=== PATIENT | female | born 1935 | race Caucasian/White ===

== ENCOUNTER 2016-09-09 22:02 | Inpatient (IN) | payer MEDICARE, OTHER ==
[~2016-09-09] VITALS: Ht 149.9 cm; Wt 54.3 kg
[~2016-09-09 22:02] MED LIST: AMAR4TAB PO; BACT800T5 PO; ENAL10TA PO; LEVO50TA53 PO; METF1000 PO; PRAV10TA PO
[2016-09-09 22:19] VITALS: BP 102/52; PULSE 108; RESP 20; TEMP 98.8; O2SAT 100
[2016-09-09 23:08] LABS: BLOOD, URINE LARGE (NEG); GLUCOSE,URINE NEG (NEG); KETONE, URINE NEG (NEG); NITRITE,URINE NEG (NEG)
[2016-09-09 23:30] LABS: METHOD OF COLLECTION CLEAN CATCH; URINE COLOR STRAW (YELLW/STRAW)
[2016-09-09 23:31] LABS: BACTERIA, URINE FEW /hpf; SQUAMOUS EPITHELIAL CELL URINE 0-5 /hpf (0-5); TRANSITIONAL EPI CELLS, URINE 0-5 /hpf; WBC, URINE INNUM /hpf (0-5)
[2016-09-09 23:32] LABS: COMMENT (UR) CULTURE INDICATED; CULTURE IF INDICATED CULTURE INDICATED
[2016-09-09 23:35] VITALS: BP_SYST 102; BP_SYST 142; BP_DIAS 54; BP_DIAS 60; PULSE 104; RESP 18; O2SAT 97
[2016-09-09] MEDS ORDERED: SODIUM CHLORIDE 0.9% FLUSH 5 ML FLUSH IVF PRN (23:45)
[2016-09-09] MEDS ORDERED: SODIUM CHLORID 0.9% 500 ML INJ 500 ML IV ONE (23:45)
[2016-09-09] MEDS ORDERED: SODIUM CHLOR 0.9% 1000 ML INJ 1,000 ML IV SCH (23:45)
[2016-09-09] MEDS ORDERED: LEVOFLOXACIN 500 MG PREMIX INJ 100 ML IV ONE (23:45)
--- NOTE | 2016-09-09 23:57 | PD ---
HPI Chief Complaint: Flank/Kidney Pain Time Seen by Provider: 23:43 Travel History International Travel<30 days: No Contact w/Intl Traveler<30days: No Traveled to known affect area: No History of Present Illness HPI 80-year-old female presents to the emergency department for possible recurrent urinary tract infection or pyelonephritis. Patient is Marshallese-speaking and prefers that her daughter Bharti translate for her and does not want to use our A /V resource to translate for her. According to the daughter who provides most of the patient's history patient felt well yesterday this morning appeared to be fine by phone conversation around 3 PM the patient's daughter was called by her brother stating that the patient was having right-sided flank pain and did not appear well. Patient had one episode of vomiting without reported hematemesis coffee-ground emesis melena or hematochezia. No reported diarrhea. Symptoms are typical of how she presents when she has a urinary tract infection. Patient is also noted at home to have temperature elevation of 100.4 F and was administered acetaminophen. Daughter states since patient not improving after 5 PM decided to bring her to the emergency room for evaluation. Patient has had multiple admissions for UTI pyelonephritis kidney stone and urosepsis related issues. Patient was last hospitalized the beginning of June was treated with Levaquin during her hospitalization and was discharged with a 10 day course of antibiotic. Patient has not been on any antibiotic in August or since the beginning of July. Patient denies any cough congestion sore throat shortness of breath upper back pain generalized abdominal pain joint pain joint swelling or skin rash. Patient's had no chest pain. Patient states flank pain does not remind her of her kidney stone pain. Current pain is 0/10 intensity. Patient has history of diabetes hypertension dyslipidemia myocardial infarction hypothyroidism kidney stones previous bladder prolapse with fistula and status post cystocele repair and fistula repair May 2016. Also status post cholecystectomy eyes surgery and lithotripsy. [facility] Past Medical History Narrative Medical diabetes hypertension dyslipidemia myocardial infarction hypothyroidism kidney stones previous bladder prolapse with fistula and status post cystocele repair and fistula repair May 2016 cholecystectomy eyes surgery and lithotripsy. No tobacco use. Nursing notes reviewed. Arthritis: No Anxiety: No Depression: No Cancer: No Cardiovascular Problems: No High Cholesterol: Yes Chemotherapy: No Congestive Heart Failure: No Diabetes: Yes (TYPE II) Diminished Hearing: No Endocrine: Yes Genitourinary: Yes Hepatitis: No Hiatal Hernia: No Hypertension: Yes Immune Disorder: No Implanted Vascular Access Dvce: Yes Kidney Stones: Yes Musculoskeletal: Yes Neurologic: No Psychiatric: No Reproductive: Yes (UTERINE PROLAPSE) Respiratory: No Immunizations Current: No Myocardial Infarction: Yes (1993) Radiation Therapy: No Thyroid Disease: Yes (HYPOTHYROIDISM) Triglycerides - High: Yes (HYPOTHYROID) PNEUMOCCOCAL Vaccine (Year): 2010 Menopausal: Yes Past Surgical History Abdominal Surgery: Yes (LAP ANGELIQUE 1994) AICD: No Body Medical Devices: R EYE Cholecystectomy: Yes Ear Surgery: No Eye Surgery: Yes (RT. EYE PROSTHESIS PLACEMENT) Genitourinary Surgery: Yes (LITHOTRIPSY 09/2010, BLADDER SLING) Gynecologic Surgery: Yes (FISTULA REPAIR 2015) Joint Replacement: No Oral Surgery: Yes (DENTURES) Pacemaker: No Other Surgery: Yes (LAPRASCOPY,) Social History Alcohol Use: No Tobacco Use: No Substance Use: No Allergies-Medications (Allergen,Severity, Reaction): Coded Allergies: Contrast Media (Verified Allergy, Intermediate, Rash, 07/25/16) Rocephin (Verified Adverse Reaction, Severe, Diarrhea, 07/25/16) Reported Meds & Prescriptions Reported Meds & Active Scripts Active Reported Amaryl (Glimepiride) 4 Mg Tab 4 Mg PO DAILY Take with breakfast or first main meal Levoxyl (Levothyroxine Sodium) 50 Mcg Tab 50 Mcg PO DAILY Enalapril (Enalapril Maleate) 10 Mg Tab 10 Mg PO DAILY Pravastatin 10 Mg Tab 10 Mg PO HS Metformin (Metformin HCl) 1,000 Mg Tab 1,000 Mg PO BIDPC With meals Review of Systems Except as stated in HPI: all other systems reviewed are Neg General / Constitutional: Positive: Fever, Chills HENT: No: Congestion Cardiovascular: No: Chest Pain or Discomfort Respiratory: No: Cough, Shortness of Breath Gastrointestinal: Positive: Nausea, Vomiting (x1), Loss of Appetite, No: Diarrhea, Abdominal Pain, Hematemesis, Hematochezia Genitourinary: Positive: Dysuria, Flank Pain, No: Urgency, Frequency Musculoskeletal: No: Myalgias, Arthralgias Skin: No Rash Neurologic: Positive: Weakness Psychiatric: No: Anxiety Hematologic/Lymphatic: No: Lymph Node Enlargement Physical Exam Narrative GENERAL: Well-developed frail-appearing female in no acute distress no respiratory distress; room air O2 saturation 96-100% heart rate 108 blood pressure 102/52 respiratory rate 20 temperature 98.8F SKIN: Warm and dry. HEAD: Normocephalic. EYES: No scleral icterus. No injection or drainage. NECK: Supple, trachea midline. No JVD or lymphadenopathy. CARDIOVASCULAR: Regular rate and rhythm without murmurs, gallops, or rubs. RESPIRATORY: Breath sounds equal bilaterally. No accessory muscle use. GASTROINTESTINAL: Abdomen soft, non-tender, nondistended. MUSCULOSKELETAL: No cyanosis, or edema. BACK: Nontender without obvious deformity. No CVA tenderness. Data Data Last Documented VS Vital Signs Date Time Temp Pulse Resp B/P Pulse Ox O2 Delivery O2 Flow Rate FiO2 09/10/16 02:46 98.1 100 18 105/68 98 Room Air Orders Urinalysis - C+S If Indicated (09/09/16 22:47) Urine Culture (09/09/16 22:39) Complete Blood Count With Diff (09/09/16 23:43) Comprehensive Metabolic Panel (09/09/16 23:43) Ecg Monitoring (09/09/16 23:43) Iv Access Insert/Monitor (09/09/16 23:43) Sodium Chloride 0.9% Flush (Ns Flush) (09/09/16 23:45) Chest, Single Ap (09/09/16 ) Blood Culture (09/09/16 23:43) Lactic Acid Sepsis Protocol (09/09/16 23:43) Sodium Chlorid 0.9% 500 Ml Inj (Ns 500 M (09/09/16 23:45) Sodium Chlor 0.9% 1000 Ml Inj (Ns 1000 M (09/09/16 23:45) Levofloxacin 500 Mg Premix Inj (Levaquin (09/09/16 23:45) Sodium Chlorid 0.9% 500 Ml Inj (Ns 500 M (09/10/16 02:15) Sodium Chlor 0.9% 1000 Ml Inj (Ns 1000 M (09/10/16 02:15) Ct Abd/Pel W/O Iv Contrast (09/10/16 ) Aztreonam Inj (Azactam Inj) (09/10/16 02:30) Admit Order (Ed Use Only) (09/10/16 ) ^ Saline Lock (09/10/16 03:27) Resp Oxygen Jose Miguel C Titrat 1-4 L (09/10/16 ) ^ Notify Dr: Other (09/10/16 03:27) Sodium Chloride 0.9% Flush (Ns Flush) (09/10/16 09:00) Labs Laboratory Tests Test 09/09/16 09/10/16 22:39 00:15 Urine Collection Type CLEAN CATCH Urine Color STRAW Urine Turbidity CLOUDY Urine pH 6.0 Urine Specific [place] 1.014 Urine Protein 100 mg/dL Urine Glucose (UA) NEG mg/dL Urine Ketones NEG mg/dL Urine Occult Blood LARGE Urine Nitrite NEG Urine Bilirubin NEG Urine Leukocyte Esterase LARGE Urine WBC INNUM /hpf Urine WBC Clumps FEW Urine Squamous Epithelial 0-5 /hpf Cells Urine Transitional Epithelial 0-5 /hpf Cells Urine Bacteria FEW /hpf Microscopic Urinalysis Comment CULTURE INDICATED White Blood Count 12.4 TH/MM3 Red Blood Count 3.83 MIL/MM3 Hemoglobin 9.1 GM/DL Hematocrit 28.3 % Mean Corpuscular Volume 73.8 FL Mean Corpuscular Hemoglobin 23.8 PG Mean Corpuscular Hemoglobin 32.3 % Concent Red Cell Distribution Width 16.7 % Platelet Count 165 TH/MM3 Mean Platelet Volume 9.6 FL Neutrophils (%) (Auto) 87.6 % Lymphocytes (%) (Auto) 4.7 % Monocytes (%) (Auto) 6.5 % Eosinophils (%) (Auto) 0.1 % Basophils (%) (Auto) 1.1 % Neutrophils # (Auto) 10.9 TH/MM3 Lymphocytes # (Auto) 0.6 TH/MM3 Monocytes # (Auto) 0.8 TH/MM3 Eosinophils # (Auto) 0.0 TH/MM3 Basophils # (Auto) 0.1 TH/MM3 CBC Comment AUTO DIFF Differential Total Cells 100 Counted Neutrophils % (Manual) 72 % Band Neutrophils % 21 % Lymphocytes % 4 % Monocytes % 3 % Neutrophils # (Manual) 11.5 TH/MM3 Differential Comment FINAL DIFF MANUAL Dohle Bodies PRESENT Platelet Estimate NORMAL Platelet Morphology Comment NORMAL Sodium Level 134 MEQ/L Potassium Level 4.8 MEQ/L Chloride Level 102 MEQ/L Carbon Dioxide Level 18.3 MEQ/L Anion Gap 14 MEQ/L Blood Urea Nitrogen 51 MG/DL Creatinine 2.70 MG/DL Estimat Glomerular Filtration 17 ML/MIN Rate Random Glucose 171 MG/DL Lactic Acid Level 1.7 mmol/L Calcium Level 9.1 MG/DL Total Bilirubin 0.5 MG/DL Aspartate Amino Transf 13 U/L (AST/SGOT) Alanine Aminotransferase 14 U/L (ALT/SGPT) Alkaline Phosphatase 49 U/L Total Protein 7.2 GM/DL Albumin 3.0 GM/DL MDM Medical Decision Making Medical Screen Exam Complete: Yes Emergency Medical Condition: Yes Medical Record Reviewed: Yes Interpretation(s) ua: Leukocyte Estrace positive, WBCs and clumped wbc's, rare bacteria; culture indicated Laboratory Tests Test 09/09/16 09/10/16 22:39 00:15 Urine Collection Type CLEAN CATCH Urine Color STRAW Urine Turbidity CLOUDY Urine pH 6.0 Urine Specific [place] 1.014 Urine Protein 100 mg/dL Urine Glucose (UA) NEG mg/dL Urine Ketones NEG mg/dL Urine Occult Blood LARGE Urine Nitrite NEG Urine Bilirubin NEG Urine Leukocyte Esterase LARGE Urine WBC INNUM /hpf Urine WBC Clumps FEW Urine Squamous Epithelial 0-5 /hpf Cells Urine Transitional Epithelial 0-5 /hpf Cells Urine Bacteria FEW /hpf Microscopic Urinalysis Comment CULTURE INDICATED White Blood Count 12.4 TH/MM3 Red Blood Count 3.83 MIL/MM3 Hemoglobin 9.1 GM/DL Hematocrit 28.3 % Mean Corpuscular Volume 73.8 FL Mean Corpuscular Hemoglobin 23.8 PG Mean Corpuscular Hemoglobin 32.3 % Concent Red Cell Distribution Width 16.7 % Platelet Count 165 TH/MM3 Mean Platelet Volume 9.6 FL Neutrophils (%) (Auto) 87.6 % Lymphocytes (%) (Auto) 4.7 % Monocytes (%) (Auto) 6.5 % Eosinophils (%) (Auto) 0.1 % Basophils (%) (Auto) 1.1 % Neutrophils # (Auto) 10.9 TH/MM3 Lymphocytes # (Auto) 0.6 TH/MM3 Monocytes # (Auto) 0.8 TH/MM3 Eosinophils # (Auto) 0.0 TH/MM3 Basophils # (Auto) 0.1 TH/MM3 CBC Comment AUTO DIFF Differential Total Cells 100 Counted Neutrophils % (Manual) 72 % Band Neutrophils % 21 % Lymphocytes % 4 % Monocytes % 3 % Neutrophils # (Manual) 11.5 TH/MM3 Differential Comment FINAL DIFF MANUAL Dohle Bodies PRESENT Platelet Estimate NORMAL Platelet Morphology Comment NORMAL Sodium Level 134 MEQ/L Potassium Level 4.8 MEQ/L Chloride Level 102 MEQ/L Carbon Dioxide Level 18.3 MEQ/L Anion Gap 14 MEQ/L Blood Urea Nitrogen 51 MG/DL Creatinine 2.70 MG/DL Estimat Glomerular Filtration 17 ML/MIN Rate Random Glucose 171 MG/DL Lactic Acid Level 1.7 mmol/L Calcium Level 9.1 MG/DL Total Bilirubin 0.5 MG/DL Aspartate Amino Transf 13 U/L (AST/SGOT) Alanine Aminotransferase 14 U/L (ALT/SGPT) Alkaline Phosphatase 49 U/L Total Protein 7.2 GM/DL Albumin 3.0 GM/DL CT abd/pel renal stone protocol: CONCLUSION: 1. No evidence of acute abdominal or pelvic process. No masses are identified. 2. Decreasing bilateral hydronephrosis and hydroureter. 3. Diverticulosis without evidence of diverticulitis. Toney Bird MD on September 10, 2016 at 2:59 Board Certified Radiologist. This report was verified electronically. Differential Diagnosis UTI, pyelonephritis, renal colic, choledocholithiasis, pneumonia, sepsis Narrative Course Patient placed on monitor technician IV access obtained patient administered bolus of normal saline 500 cc 10 cc per KG due to low normal range blood pressure and maintenance fluid at 1 25 cc per hour also administered presumptive Levaquin based on review of medical records and previous culture sensitive to quinolones. Sepsis Criteria SIRS Criteria (2 or more): Heart rate over 90, WBC > 10359, < 4000 or > 10% bands Sepsis Criteria (SIRS+source): Infect source susp/known (urine) Physician Communication Physician Communication discussed with and accepted by Dr Rinaldi -- [facility] ICU Diagnosis Primary Impression: Sepsis Qualified Code: A41.9 - Sepsis, due to unspecified organism Additional Impressions: UTI (urinary tract infection) Qualified Code: N30.00 - Acute cystitis without hematuria Renal insufficiency Serena Hui MD Sep 09, 2016 23:57
[2016-09-10] VITALS (75 sets, daily range): BP systolic 59–155; BP diastolic 36–83; PULSE 84–118; RESP 17–44; TEMP 98.1–101.7; O2SAT 72–100
--- NOTE | 2016-09-10 00:18 | RADHPO ---
EXAM DATE/TIME: 09/10/2016 00:05 [facility] COMPARISON: CHEST SINGLE AP, July 01, 2016, 12:58. INDICATIONS : Fever. MEDICAL HISTORY : Hypertension. Hypercholesterolemia. Myocardial infarction. Hypothyroid, Kidnet stones, Renal fail ure, Osteoporsis, Diabetes SURGICAL HISTORY : Cholecystectomy. Carpal tunnel syndrome. Right eye prosthesis, Fistula repair ENCOUNTER: Initial ACUITY: 1 day PAIN SCORE: 3/10 LOCATION: Bilateral chest FINDINGS: The cardiac silhouette is enlarged in transverse diameter. The lungs are free of acute parenchymal op acity. No effusions are identified. Osseous structures are intact. CONCLUSION: Cardiomegaly. No acute cardiopulmonary disease. Toney Bird MD on September 10, 2016 at 0:16 Board Certified Radiologist. This report was verified electronically.
[2016-09-10 00:41] LABS: AUTOMATED NEUTROPHIL # 10.9 TH/MM3 (1.8-7.7); BASOPHIL # 0.1 TH/MM3 (0-0.2); BASOPHIL % 1.1 % (0.0-2.0); EOSINOPHIL % 0.1 % (0.0-4.0); HEMATOCRIT 28.3 % (35.0-46.0); LYMPH % 4.7 % (9.0-44.0); LYMPHOCYTE # 0.6 TH/MM3 (1.0-4.8); MEAN CELL VOLUME 73.8 FL (80.0-100.0); MEAN CORPUSCULAR HEMOGLOBIN 23.8 PG (27.0-34.0); MEAN CORPUSCULAR HGB CONC 32.3 % (32.0-36.0); MONO % 6.5 % (0.0-8.0); NEUT % 87.6 % (16.0-70.0); PLATELET COUNT 165 TH/MM3 (150-450); RED BLOOD COUNT 3.83 MIL/MM3 (4.00-5.30); RED CELL DISTRIBUTION WIDTH 16.7 % (11.6-17.2); WHITE BLOOD COUNT 12.4 TH/MM3 (4.0-11.0)
[2016-09-10 00:54] LABS: HEMO FLAGS AUTO DIFF
[2016-09-10 00:57] LABS: CHLORIDE 102 MEQ/L (98-107); POTASSIUM 4.8 MEQ/L (3.5-5.1); SODIUM (NA) 134 MEQ/L (136-145)
[2016-09-10 01:01] LABS: ANION GAP 14 MEQ/L (5-15); BICARBONATE 18.3 MEQ/L (21.0-32.0); BLOOD UREA NITROGEN 51 MG/DL (7-18)
[2016-09-10 01:04] LABS: ALT (GPT) 14 U/L (10-53); AST (GOT) 13 U/L (15-37); GLOMERULAR FILTRATION RATE 17 ML/MIN (>89)
[2016-09-10 01:06] LABS: TOTAL BILIRUBIN ADULT 0.5 MG/DL (0.2-1.0)
[2016-09-10 01:07] LABS: ALKALINE PHOSPHATASE 49 U/L (45-117)
[2016-09-10 02:11] LABS: BANDS 21 % (0-6); NEUTROPHIL # MANUAL DIFF 11.5 TH/MM3 (1.8-7.7); POLYS (SEG NEUTROPHILS) 72 % (16-70); WBC DIFF SAMPLE 100
[2016-09-10 02:13] LABS: DOHLE BODIES PRESENT (NONE SEEN); PLATELET ESTIMATE SMEAR NORMAL (NORMAL); PLATELET MORPHOLOGY NORMAL (NORMAL); SCAN/DIFF FINAL DIFF MANUAL
[2016-09-10] MEDS ORDERED: SODIUM CHLORID 0.9% 500 ML INJ 500 ML IV ONE (02:15)
[2016-09-10] MEDS ORDERED: SODIUM CHLOR 0.9% 1000 ML INJ 1,000 ML IV ONE ×2 (02:15→12:15)
[2016-09-10] MEDS ORDERED: AZTREONAM INJ 1,000 MG in SODIUM CHLORIDE 0.9% INJ 100 ML IV ONE (02:30)
--- NOTE | 2016-09-10 03:05 | RADHPO ---
EXAM DATE/TIME: 09/10/2016 02:28 [facility] COMPARISON: CT ABDOMEN & PELVIS W/O CONTRAST, July 02, 2016, 22:20. INDICATIONS : Right flank pain with fever. ORAL CONTRAST: No oral contrast ingested. RADIATION DOSE: 7.46 CTDIvol (mGy) MEDICAL HISTORY : Hypertension. Myocardial infarction. Diabetes mellitus type 2.Renal stones. Renal failure. SURGICAL HISTORY : Cholecystectomy. ENCOUNTER: Initial ACUITY: 1 day PAIN SCALE: 4/10 LOCATION: Right flank TECHNIQUE: Volumetric scanning of the abdomen and pelvis was performed. Using automated exposure control and ad justment of the mA and/or kV according to patient size, radiation dose was kept as low as reasonably achievable to obtain optimal diagnostic quality images. FINDINGS: Examination of the lung bases demonstrates no abnormality. No pleural fluid is identified. No pulmona ry nodules are present. The liver and spleen are normal in size and no focal defects are identified. The gallbladder is absent. The pancreas demonstrates normal contour without evidence of mass or ducta l dilatation. The adrenal glands are unremarkable. There is decreasing hydronephrosis bilaterally. No abnormally enlarged lymph nodes are identified. A 9 cm fat-containing umbilical hernia is present un changed from the prior study. Examination of the pelvis demonstrates no evidence of free fluid or pelvic mass. No abnormally enlarg ed inguinal or retroperitoneal lymph nodes are present. The bladder is unremarkable. There is diverti culosis without evidence of diverticulitis. The uterus is enlarged characteristic of fibroids. CONCLUSION: 1. No evidence of acute abdominal or pelvic process. No masses are identified. 2. Decreasing bilateral hydronephrosis and hydroureter. 3. Diverticulosis without evidence of diverticulitis. Toney Bird MD on September 10, 2016 at 2:59 Board Certified Radiologist. This report was verified electronically.
[2016-09-10] MEDS ORDERED: SODIUM CHLORIDE 0.9% FLUSH 5 ML FLUSH IVF PRN (03:30)
[2016-09-10] MEDS ORDERED: ACETAMINOPHEN 325 MG TAB PO PRN (04:00)
[2016-09-10] MEDS ORDERED: SODIUM CHLORIDE 0.9% FLUSH 5 ML FLUSH IV FLUSH PRN (04:00)
[2016-09-10] MEDS ORDERED: MISCELLANEOUS NURSING INFORMATION XX SCH (04:00)
[2016-09-10] MEDS ORDERED: LEVOFLOXACIN 500 MG PREMIX INJ 100 ML IV SCH (04:00)
[2016-09-10] MEDS ORDERED: CHLORHEXIDINE GLUCONATE 2 % 1 PACK (2 CLOTHS) TOP PRN (04:00)
[2016-09-10] MEDS ORDERED: ACETAMINOPHEN 325 MG TAB PO ONE (04:00)
[2016-09-10] MEDS ORDERED: ONDANSETRON HCL 4 MG/2 ML VIAL IV PRN (04:00)
[2016-09-10] MEDS ORDERED: ACETAMINOPHEN 650 MG SUPP RECTAL ONE (04:15)
[2016-09-10] MEDS: SODIUM CHLOR 0.9% 1000 ML INJ 1,000 ML IV SCH ×3 (05:17→17:20)
[2016-09-10] MEDS: CHLORHEXIDINE GLUCONATE 2 % 1 PACK (2 CLOTHS) TOP SCH (05:19)
[2016-09-10] MEDS ORDERED: MIDAZOLAM HCL 5 MG/ML VIAL (1 ML) ONE (07:00)
[2016-09-10] MEDS ORDERED: NOREPINEPHRINE-DEXTROSE DRIP 250 ML IV ONE (07:21)
[2016-09-10] MEDS ORDERED: DEXTROSE 50% IN WATER 50 ML VIAL(D50) IV PUSH PRN (07:30)
[2016-09-10] MEDS ORDERED: GLUCAGON 1 MG/ML VIAL OTHER PRN (07:30)
[2016-09-10] MEDS ORDERED: TERBUTALINE INJ 1 MG/ML AMP SQ PRN (07:30)
[2016-09-10] MEDS ORDERED: MORPHINE SULFATE 4 MG/ML INJ IV PUSH PRN (07:30)
--- NOTE | 2016-09-10 07:36 | PD.PROCEDR ---
Procedure Note Procedure DX: Severe Sepsis (A41.9), NEERAJ (N17.9) OP: Insertion Right Subclavian Central Venous Line ([id number]) Procedure: Right chest prepped and draped. Right subclavian vein cannulated with thin walled needle and wire easily advanced. Catheter passed over wire to 16 cm. Lumnes aspirated and flushed. Dressing applied. CXR with line in good position, suitable for use. Manoj Rinaldi MD Sep 10, 2016 07:36
--- NOTE | 2016-09-10 07:39 | HHI.HP ---
HPI Service Critical Care Medicine Primary Care Physician Gurdeep Mims, DO Admission Diagnosis sepsis; uti; NEERAJ; DM Diagnosis: Chief Complaint: AMS, fever Travel History International Travel<30 Days: No Contact w/Intl Traveler <30 Da: No Traveled to Known Affected Are: No History of Present Illness 80 y/o woman presents to ED with severe dehydration and florid sepsis from cystitis. Review of Systems Genitourinary: COMPLAINS OF: Urinary frequency, Dysuria Past Family Social History Allergies: Coded Allergies: Contrast Media (Verified Allergy, Intermediate, Rash, 07/25/16) Rocephin (Verified Adverse Reaction, Severe, Diarrhea, 07/25/16) Past Medical History Past Medical History Narrative Medical diabetes hypertension dyslipidemia myocardial infarction hypothyroidism kidney stones previous bladder prolapse with fistula and status post cystocele repair and fistula repair May 2016 cholecystectomy eyes surgery and lithotripsy. No tobacco use. Nursing notes reviewed. Arthritis: No Anxiety: No Depression: No Cancer: No Cardiovascular Problems: No High Cholesterol: Yes Chemotherapy: No Congestive Heart Failure: No Diabetes: Yes (TYPE II) Diminished Hearing: No Endocrine: Yes Genitourinary: Yes Hepatitis: No Hiatal Hernia: No Hypertension: Yes Immune Disorder: No Implanted Vascular Access Dvce: Yes Kidney Stones: Yes Musculoskeletal: Yes Neurologic: No Psychiatric: No Reproductive: Yes (UTERINE PROLAPSE) Respiratory: No Immunizations Current: No Myocardial Infarction: Yes (1993) Radiation Therapy: No Thyroid Disease: Yes (HYPOTHYROIDISM) Triglycerides - High: Yes (HYPOTHYROID) PNEUMOCCOCAL Vaccine (Year): 2010 Menopausal: Yes Past Surgical History Abdominal Surgery: Yes (ASHLEY ANGELIQUE 1994) AICD: No Body Medical Devices: R EYE Cholecystectomy: Yes Ear Surgery: No Eye Surgery: Yes (RT. EYE PROSTHESIS PLACEMENT) Genitourinary Surgery: Yes (LITHOTRIPSY 09/2010, BLADDER SLING) Gynecologic Surgery: Yes (FISTULA REPAIR 2015) Joint Replacement: No Oral Surgery: Yes (DENTURES) Pacemaker: No Other Surgery: Yes (LAPRASCOPY,) Social History Alcohol Use: No Tobacco Use: No Substance Use: No Allergies-Medications Allergies-Medications (Allergen,Severity, Reaction): Coded Allergies: Contrast Media (Verified Allergy, Intermediate, Rash, 07/25/16) Rocephin (Verified Adverse Reaction, Severe, Diarrhea, 07/25/16) Reported Meds & Prescriptions Reported Meds & Active Scripts Active Reported Amaryl (Glimepiride) 4 Mg Tab 4 Mg PO DAILY Take with breakfast or first main meal Levoxyl (Levothyroxine Sodium) 50 Mcg Tab 50 Mcg PO DAILY Enalapril (Enalapril Maleate) 10 Mg Tab 10 Mg PO DAILY Pravastatin 10 Mg Tab 10 Mg PO HS Metformin (Metformin HCl) 1,000 Mg Tab 1,000 Mg PO BIDPC With meals Physical Exam Vital Signs Vital Signs Date Time Temp Pulse Resp B/P Pulse Ox O2 Delivery O2 Flow Rate FiO2 09/10/16 06:00 110 09/10/16 05:16 99 Nasal Cannula 2.00 09/10/16 04:27 118 24 155/65 95 Nasal Cannula 2 09/10/16 04:25 Nasal Cannula 2 09/10/16 03:45 101.7 09/10/16 02:46 98.1 100 18 105/68 98 Room Air 09/10/16 02:13 96 86/51 96 09/10/16 01:37 100 94/58 97 09/10/16 00:56 100 16 09/09/16 23:35 104 18 102/54 97 Room Air 09/09/16 22:19 98.8 108 20 102/52 100 Physical Exam P 82, SBP 72, R 18, Sats 95% Head: Normal. Neck: Supple, airway widely patent. No obstruction. Lungs: Clear, comfortable pattern, no wheezes or crackles. Heart: NL S1S2, neck veins flat. Abdomen: Soft, mild tenderness lower abdomen. No peritoneal irritation. BS few. No guarding. Extremities: Tepid but well perfused. Neuro: Does not speak [place]. Speech clear. Moves 4 limbs spontaneously. Skin: Poor turgor. Laboratory Laboratory Tests Test 09/09/16 09/10/16 09/10/16 22:39 00:15 04:00 Urine Collection Type CLEAN CATCH Urine Color STRAW Urine Turbidity CLOUDY Urine pH 6.0 Urine Specific [place] 1.014 Urine Protein 100 Urine Glucose (UA) NEG Urine Ketones NEG Urine Occult Blood LARGE Urine Nitrite NEG Urine Bilirubin NEG Urine Leukocyte Esterase LARGE Urine WBC INNUM Urine WBC Clumps FEW Urine Squamous Epithelial 0-5 Cells Urine Transitional Epithelial 0-5 Cells Urine Bacteria FEW Microscopic Urinalysis Comment CULTURE INDICATED White Blood Count 12.4 Red Blood Count 3.83 Hemoglobin 9.1 Hematocrit 28.3 Mean Corpuscular Volume 73.8 Mean Corpuscular Hemoglobin 23.8 Mean Corpuscular Hemoglobin 32.3 Concent Red Cell Distribution Width 16.7 Platelet Count 165 Mean Platelet Volume 9.6 Neutrophils (%) (Auto) 87.6 Lymphocytes (%) (Auto) 4.7 Monocytes (%) (Auto) 6.5 Eosinophils (%) (Auto) 0.1 Basophils (%) (Auto) 1.1 Neutrophils # (Auto) 10.9 Lymphocytes # (Auto) 0.6 Monocytes # (Auto) 0.8 Eosinophils # (Auto) 0.0 Basophils # (Auto) 0.1 CBC Comment AUTO DIFF Differential Total Cells 100 Counted Neutrophils % (Manual) 72 Band Neutrophils % 21 Lymphocytes % 4 Monocytes % 3 Neutrophils # (Manual) 11.5 Differential Comment FINAL DIFF MANUAL Dohle Bodies PRESENT Platelet Estimate NORMAL Platelet Morphology Comment NORMAL Sodium Level 134 Potassium Level 4.8 Chloride Level 102 Carbon Dioxide Level 18.3 Anion Gap 14 Blood Urea Nitrogen 51 Creatinine 2.70 Estimat Glomerular Filtration 17 Rate Random Glucose 171 Lactic Acid Level 1.7 4.3 Calcium Level 9.1 Total Bilirubin 0.5 Aspartate Amino Transf 13 (AST/SGOT) Alanine Aminotransferase 14 (ALT/SGPT) Alkaline Phosphatase 49 Total Protein 7.2 Albumin 3.0 Date/Time Procedure Status Source Growth 09/10/16 00:23 Aerobic Blood Culture Received Blood Peripheral Pending 09/10/16 00:23 Anaerobic Blood Culture Received Blood Peripheral Pending 09/09/16 22:39 Urine Culture Received Urine Clean Catch Pending Result Diagram: 09/10/16 0015 09/10/16 0015 Assessment and Plan Problem List: (1) Severe sepsis with acute organ dysfunction ICD Code: A41.9 Status: Acute (2) UTI (urinary tract infection) ICD Code: N39.0 Status: Acute (3) Acute kidney injury ICD Code: N17.9 Status: Acute (4) Fever ICD Code: R50.9 Status: Acute Assessment and Plan Plan: 1. Aggressive hydration. 2. Broad antibiotic coverage pending C&S. 3. Confirm correction of lactic acidosis. 4. Confirm urine > 30/hr, Salas to CBD. 5. Heparin 5000 BID sq. 6. Protonix. 7. HOB up 30 degrees. 8. Tylenol for fever. Overall impression: Critically ill with severe sepsis requiring vasopressor support. She is hemodynamically unstable with lactic acidosis. Critical Care 50 mins aside from procedures. Problem Qualifiers (1) UTI (urinary tract infection): Qualified Code: N30.00 - Acute cystitis without hematuria Manoj Rinaldi MD Sep 10, 2016 07:39
[2016-09-10] MEDS: INSULIN ASPART SUPPLEMENTAL SCALE SQ SCH ×3 (08:00→20:00)
[2016-09-10] MEDS ORDERED: MIDAZOLAM HCL 2 MG/2 ML VIAL IV PUSH ONE (08:00)
--- NOTE | 2016-09-10 08:01 | RADHPO ---
EXAM DATE/TIME: 09/10/2016 07:44 [facility] COMPARISON: CHEST SINGLE AP, September 10, 2016, 0:05. INDICATIONS : Central line placement MEDICAL HISTORY : None. SURGICAL HISTORY : None. ENCOUNTER: Subsequent ACUITY: 1 month PAIN SCORE: Non-responsive. LOCATION: Bilateral chest FINDINGS: A single view of the chest demonstrates interval placement of a right subclavian central line with th e catheter tip overlying the right atrium. The cardiomediastinal contours are unremarkable. Osseous structures are intact. CONCLUSION: Central line has been placed. Its tip overlies the right atrium. Lalo Waite MD on September 10, 2016 at 7:58 Board Certified Radiologist. This report was verified electronically.
[2016-09-10] MEDS: PANTOPRAZOLE SODIUM 40 MG VIAL IV SCH (08:39)
[2016-09-10] MEDS ORDERED: SODIUM CHLORIDE 0.9% FLUSH 5 ML FLUSH IVF SCH (09:00)
[2016-09-10] MEDS: DOCUSATE SODIUM 100 MG CAP PO SCH ×2 (09:00→20:55)
[2016-09-10] MEDS: NOREPINEPHRINE INJ 4 MG in SODIUM CHLOR 0.9% 250 ML INJ 246 ML IV SCH (09:23)
[2016-09-10] MEDS: SODIUM CHLORIDE 0.9% FLUSH 5 ML FLUSH IV FLUSH SCH ×2 (09:23→20:55)
[2016-09-10] MEDS: LEVOTHYROXINE SODIUM 50 MCG TAB PO SCH (09:26)
[2016-09-10] MEDS: ENOXAPARIN SODIUM 30 MG/0.3 ML SYRINGE SQ SCH (09:26)
[2016-09-10 13:02] LABS: AUTOMATED NEUTROPHIL # 10.3 TH/MM3 (1.8-7.7); EOSINOPHIL % 0.1 % (0.0-4.0); HEMATOCRIT 21.5 % (35.0-46.0); LYMPH % 3.5 % (9.0-44.0); LYMPHOCYTE # 0.4 TH/MM3 (1.0-4.8); MEAN CELL VOLUME 72.8 FL (80.0-100.0); MEAN CORPUSCULAR HEMOGLOBIN 24.2 PG (27.0-34.0); MEAN CORPUSCULAR HGB CONC 33.2 % (32.0-36.0); MONO % 5.7 % (0.0-8.0); NEUT % 90.7 % (16.0-70.0); PLATELET COUNT 106 TH/MM3 (150-450); RED BLOOD COUNT 2.95 MIL/MM3 (4.00-5.30); RED CELL DISTRIBUTION WIDTH 16.6 % (11.6-17.2); WHITE BLOOD COUNT 11.3 TH/MM3 (4.0-11.0)
[2016-09-10 13:04] LABS: HEMO FLAGS AUTO DIFF
[2016-09-10 13:18] LABS: BICARBONATE 14.9 MEQ/L (21.0-32.0); MAGNESIUM 1.3 MG/DL (1.5-2.5); POTASSIUM 3.5 MEQ/L (3.5-5.1)
[2016-09-10 13:29] LABS: CALCIUM-PROTEIN CORRECTED 7.9 MG/DL (8.5-10.1)
[2016-09-10 13:34] LABS: BANDS 36 % (0-6); BASOPHILS 1 % (0-2); METAMYELOCYTES 1 % (0-1); NEUTROPHIL # MANUAL DIFF 10.1 TH/MM3 (1.8-7.7); POLYS (SEG NEUTROPHILS) 52 % (16-70); WBC DIFF SAMPLE 100
[2016-09-10 13:35] LABS: DOHLE BODIES PRESENT (NONE SEEN); PLATELET ESTIMATE SMEAR LOW (NORMAL); PLATELET MORPHOLOGY NORMAL (NORMAL); SCAN/DIFF FINAL DIFF MANUAL
[2016-09-10] MEDS: AZTREONAM INJ 1,000 MG in SODIUM CHLORIDE 0.9% INJ 100 ML IV SCH (15:12)
[2016-09-10] MEDS: MAGNESIUM SULFAT 1 GM PREMIX 100 ML x2 bags IV SCH ×2 (15:50→16:00)
[2016-09-10] MEDS: POTASSIUM CHLOR 20 MEQ PREMIX 100 ML IV SCH ×2 (17:52→18:51)
[2016-09-10] MEDS: PRAVASTATIN SOD 10 MG TAB PO SCH (20:56)
[2016-09-10] MEDS: RESP: ALBUTEROL 2.5 MG/IPRATROPIUM 0.5 MG NEB (PRN) INH (22:00)
[2016-09-11] VITALS (40 sets, daily range): BP systolic 86–153; BP diastolic 46–88; PULSE 78–102; RESP 9–42; TEMP 97.6–99.5; O2SAT 92–100
[2016-09-11] MEDS: INSULIN ASPART SUPPLEMENTAL SCALE SQ SCH ×4 (02:00→20:00)
[2016-09-11] MEDS: AZTREONAM INJ 1,000 MG in SODIUM CHLORIDE 0.9% INJ 100 ML IV SCH ×3 (02:44→17:40)
[2016-09-11] MEDS: NOREPINEPHRINE INJ 4 MG in SODIUM CHLOR 0.9% 250 ML INJ 246 ML IV SCH (02:45)
[2016-09-11] MEDS: SODIUM CHLOR 0.9% 1000 ML INJ 1,000 ML IV SCH ×2 (04:42→09:14)
[2016-09-11] MEDS: CHLORHEXIDINE GLUCONATE 2 % 1 PACK (2 CLOTHS) TOP SCH (04:43)
[2016-09-11] MEDS: LEVOTHYROXINE SODIUM 50 MCG TAB PO SCH (05:38)
[2016-09-11 05:57] LABS: POTASSIUM 4.1 MEQ/L (3.5-5.1)
[2016-09-11 06:09] LABS: AUTOMATED NEUTROPHIL # 9.8 TH/MM3 (1.8-7.7); BASOPHIL % 0.1 % (0.0-2.0); EOSINOPHIL % 0.4 % (0.0-4.0); LYMPH % 4.2 % (9.0-44.0); LYMPHOCYTE # 0.5 TH/MM3 (1.0-4.8); MEAN CELL VOLUME 75.4 FL (80.0-100.0); MEAN CORPUSCULAR HEMOGLOBIN 23.8 PG (27.0-34.0); MEAN CORPUSCULAR HGB CONC 31.6 % (32.0-36.0); MONO % 5.5 % (0.0-8.0); NEUT % 89.8 % (16.0-70.0); PLATELET COUNT 122 TH/MM3 (150-450); RED BLOOD COUNT 3.45 MIL/MM3 (4.00-5.30); WHITE BLOOD COUNT 10.9 TH/MM3 (4.0-11.0)
[2016-09-11 06:23] LABS: HEMO FLAGS AUTO DIFF
[2016-09-11 06:42] LABS: BICARBONATE 12.8 MEQ/L (21.0-32.0); MAGNESIUM 1.9 MG/DL (1.5-2.5)
[2016-09-11 07:05] LABS: BANDS 15 % (0-6); NEUTROPHIL # MANUAL DIFF 9.8 TH/MM3 (1.8-7.7); PLATELET ESTIMATE SMEAR LOW (NORMAL); PLATELET MORPHOLOGY NORMAL (NORMAL); POLYS (SEG NEUTROPHILS) 75 % (16-70); SCAN/DIFF FINAL DIFF MANUAL; WBC DIFF SAMPLE 100
[2016-09-11 07:18] LABS: CALCIUM-PROTEIN CORRECTED 7.8 MG/DL (8.5-10.1)
--- NOTE | 2016-09-11 07:27 | HHI.CCPN ---
Subjective Remarks/Hospital Course 80 y/o woman presents to ED with severe dehydration and florid sepsis from cystitis. SUBJECTIVE 09/11: Comfortably in bed in no acute distress. On weaning doses of Levophed, currently on 1 veronique per minute map above 70. Urine output is adequate creatinine has improved from 2.7 yesterday to 1.7 today. Urine output is 2.4 L in 24 hours Objective Vital Signs Date Time Temp Pulse Resp B/P Pulse Ox O2 Delivery O2 Flow Rate FiO2 09/11/16 06:01 92 31 119/70 96 09/11/16 03:01 97.6 09/10/16 19:25 Nasal Cannula 2.00 Intake and Output 09/10/16 09/10/16 09/11/16 08:00 16:00 00:00 Intake Total 1700 ml 3730 ml 1542 ml Output Total 200 ml 600 ml 1400 ml Balance 1500 ml 3130 ml 142 ml Result Diagram: 09/11/166 09/11/16445 Objective Remarks Gen: Elderly female not in any acute distress Head: Normal. Neck: Supple, airway patent. No obstruction. Lungs: Clear, comfortable pattern, no wheezes or crackles. Heart: NL S1S2, neck veins flat. Abdomen: Soft, mild tenderness lower abdomen. No peritoneal irritation. BS few. No guarding. Right sided ventral hernia Extremities: Tepid but well perfused. Neuro: Does not speak Slovak. Speech clear. Moves 4 limbs spontaneously. Skin: Poor turgor. Urinary Catheter: Yes Assessment to: Continue Vascular Central Line Catheter: Yes Assessment to: Continue A/P Problem List: (1) Severe sepsis with acute organ dysfunction ICD Code: A41.9 Status: Acute (2) UTI (urinary tract infection) ICD Code: N39.0 Status: Acute (3) Acute kidney injury ICD Code: N17.9 Status: Acute (4) Fever ICD Code: R50.9 Status: Acute Assessment and Plan Plan: 1. Continue hydration. Pinedo use normal saline from 125 mL per hour to 75 mL per hour 2. Broad antibiotic coverage pending C&S. Currently receiving Azactam and Levaquin 3. Lactic acidosis resolved 4. Confirm urine > 30/hr, Saals to CBD. Acute kidney failure is resolving creatinine improved from 2.7-1.7 5. Heparin 5000 BID sq. 6. Protonix. 7. HOB up 30 degrees. 8. Tylenol for fever. Overall impression: Improving septic shock. On weaning doses of Levophed Consult [place] hospitalist to assume care, CCM will sign off. Re consult as needed Problem Qualifiers (1) UTI (urinary tract infection): Qualified Code: N30.00 - Acute cystitis without hematuria Randy Pantoja MD Sep 11, 2016 07:27
[2016-09-11] MEDS: DOCUSATE SODIUM 100 MG CAP PO SCH ×2 (09:00→20:54)
[2016-09-11] MEDS: ENOXAPARIN SODIUM 30 MG/0.3 ML SYRINGE SQ SCH (09:11)
[2016-09-11] MEDS: PANTOPRAZOLE SODIUM 40 MG VIAL IV SCH (09:11)
[2016-09-11] MEDS: SODIUM CHLORIDE 0.9% FLUSH 5 ML FLUSH IV FLUSH SCH ×2 (09:14→20:53)
[2016-09-11] MEDS ORDERED: FUROSEMIDE 20 MG/2 ML VIAL IV PUSH ONE (14:15)
[2016-09-11] MEDS: PRAVASTATIN SOD 10 MG TAB PO SCH (21:56)
[2016-09-11] MEDS: RESP: ALBUTEROL 2.5 MG/IPRATROPIUM 0.5 MG NEB (PRN) INH (21:58)
[2016-09-12] VITALS (32 sets, daily range): BP systolic 111–151; BP diastolic 55–91; PULSE 76–92; RESP 19–32; TEMP 97.6–98.8; O2SAT 97–100
[2016-09-12] MEDS ORDERED: LEVOFLOXACIN 500 MG PREMIX INJ 100 ML IV SCH (01:00)
[2016-09-12] MEDS: INSULIN ASPART SUPPLEMENTAL SCALE SQ SCH ×4 (02:00→19:58)
[2016-09-12] MEDS: AZTREONAM INJ 1,000 MG in SODIUM CHLORIDE 0.9% INJ 100 ML IV SCH ×3 (02:31→18:22)
[2016-09-12] MEDS: CHLORHEXIDINE GLUCONATE 2 % 1 PACK (2 CLOTHS) TOP SCH (04:00)
[2016-09-12 05:03] LABS: AUTOMATED NEUTROPHIL # 8.5 TH/MM3 (1.8-7.7); BASOPHIL % 0.2 % (0.0-2.0); EOSINOPHIL # 0.1 TH/MM3 (0-0.4); EOSINOPHIL % 0.9 % (0.0-4.0); HEMATOCRIT 25.2 % (35.0-46.0); LYMPH % 4.6 % (9.0-44.0); LYMPHOCYTE # 0.4 TH/MM3 (1.0-4.8); MEAN CELL VOLUME 76.3 FL (80.0-100.0); MEAN CORPUSCULAR HEMOGLOBIN 25.1 PG (27.0-34.0); MONO % 5.8 % (0.0-8.0); NEUT % 88.5 % (16.0-70.0); PLATELET COUNT 128 TH/MM3 (150-450); RED BLOOD COUNT 3.31 MIL/MM3 (4.00-5.30); RED CELL DISTRIBUTION WIDTH 18.7 % (11.6-17.2); WHITE BLOOD COUNT 9.6 TH/MM3 (4.0-11.0)
[2016-09-12 05:29] LABS: HEMO FLAGS AUTO DIFF
[2016-09-12 05:56] LABS: CALCIUM-PROTEIN CORRECTED 8.1 MG/DL (8.5-10.1); POTASSIUM 3.4 MEQ/L (3.5-5.1); TOTAL BILIRUBIN ADULT 0.3 MG/DL (0.2-1.0)
[2016-09-12] MEDS: LEVOTHYROXINE SODIUM 50 MCG TAB PO SCH (06:09)
[2016-09-12 06:49] LABS: SCAN/DIFF AUTO DIFF CONFIRMED
[2016-09-12] MEDS: DOCUSATE SODIUM 100 MG CAP PO SCH ×2 (09:00→19:55)
[2016-09-12] MEDS: ENOXAPARIN SODIUM 30 MG/0.3 ML SYRINGE SQ SCH (09:17)
[2016-09-12] MEDS: PANTOPRAZOLE SODIUM 40 MG VIAL IV SCH (09:17)
[2016-09-12] MEDS: SODIUM CHLORIDE 0.9% FLUSH 5 ML FLUSH IV FLUSH SCH ×2 (09:18→19:59)
[2016-09-12] MEDS ORDERED: POTASSIUM CL 40 MEQ/30 ML LIQ UDC PO ONE (11:30)
[2016-09-12] MEDS: FUROSEMIDE 20 MG/2 ML VIAL IV PUSH SCH (12:45)
[2016-09-12] MEDS: PRAVASTATIN SOD 10 MG TAB PO SCH (19:59)
--- NOTE | 2016-09-12 21:21 | MB ---
cc: EVERTON BAUGH MD DATE OF CONSULTATION 09/12/16 CHIEF COMPLAINT Kidney pain, flank pain. REASON FOR CONSULTATION Medical management. HISTORY OF PRESENT ILLNESS This is an 80-year-old female with past medical-surgical history significant for recurrent urinary tract infection or pyelonephritis, diabetes, hypertension, hyperlipidemia, myocardial infarction, hypothyroidism, kidney stone, previous bladder prolapse surgery, surgery with fistula and status post cystocele repair and fistula repair in May 2016, cholecystectomy, eye surgery and lithotripsy, history of Laparoscopic cholecystectomy in 1994, laparoscopy in the past who came to the ER at [facility]. The daughter was at the bedside who translated for me. The patient speaks Amharic, daughter who has provided most of the patient history. The patient had some right-sided flank pain and did not appear well. The patient had one episode of vomiting without hematemesis. No black stool or blood in stool, no diarrhea. She said that the symptoms are typical when she has a urinary tract infection and has some temperature of 104 degrees Fahrenheit and got acetaminophen. She decided to bring te patient to the emergency room for evaluation. The patient had multiple admissions for a UTI, pyelonephritis, kidney stone and urosepsis. The patient has been hospitalized in June and treated with Levaquin and discharged on 10 course of antibiotic. She denies any cough, congestion, sore throat or shortness of breath, upper back pain, lower back pain, abdominal pain, any skin rashes, joint swelling. She denies any flank pain at the time of examination. Other than that, nothing significant. PAST MEDICAL HISTORY/PAST SURGICAL HISTORY As dictated above. SOCIAL HISTORY Denies smoking, drinking, taking any drugs. She is retired. ALLERGIES CONTRAST MEDIA ROCEPHIN MEDICATIONS 1. Amaryl 4 mg p.o. daily. 2. Levoxyl 50 mcg p.o. daily. 3. Enalapril 10 mg p.o. daily 4. Pravastatin 10 mg p.o. at bedtime. 5. Metformin 1000 mg p.o. b.i.d. REVIEW OF SYSTEMS Positive for feeling weak and tired. All other review of systems are negative. PHYSICAL EXAMINATION GENERAL: This is an 80-year female laying in the bed not in acute distress. VITAL SIGNS: Temperature 97.6, heart rate 80, respirations 27, blood pressure of 151/80, O2 saturation 100% room air. HEENT: Normocephalic, atraumatic. EOMI. Pupils equal, round, reactive to light and accommodation. Oral mucosa moist. NECK: Supple. No visible thyromegaly or neck mass. Trachea central. CVS: Regular rate and rhythm. LUNGS: Respirations clear to auscultation bilaterally. ABDOMEN: Soft, nontender. Bowel sounds audible. EXTREMITIES: No cyanosis or clubbing, full range of motion of all extremities. BACK: No CVA tenderness. PSYCHIATRIC: Patient cooperative. NEUROLOGIC: Awake, alert, oriented x4, no focal deficits. LABORATORY DATA CBC is totally unremarkable except for WBC count was 12.4 now it is 9.6, hemoglobin 8.3 low, RBC count 3.31 low, hematocrit is 25.2 low. BMP totally unremarkable except for potassium 3.4 low, chloride 112 high, CO2 17.0, BUN 24 high, creatinine 1.50 high, glucose random 164 high, calcium 7.3 low, corrected calcium 8.1, total protein 5.6, albumin to 2.0. Urine shows large leukocyte esterase, innumerable WBCs, few clumps of WBC. Nasal screen negative for MRSA. Blood culture positive for Klebsiella pneumoniae. Urinalysis positive for Klebsiella pneumoniae. IMAGING STUDIES Chest x-ray done shows cardiomegaly, no acute cardiopulmonary disease. Another chest x-ray done shows central line has been placed, tape overlies the right atrium. CT abdomen and pelvis done shows no evidence of acute abdomen or pelvic process. No masses are identified. Decreasing bilateral hydronephrosis and hydroureter diverticulosis without evidence of diverticulitis. ASSESSMENT/PLAN This is an 80-year-old female who came to the ER diagnosed with urinary tract infection/sepsis from urinary source. The patient on Levaquin IV and aztreonam. I will consult infectious disease doctor for further recommendation. 2. History of congestive heart failure. The patient is on Lasix. 3. History of hypothyroidism. Continue Levoxyl 50 mcg p.o. daily. 4. History of COPD. Continue home medication. 5. History of kidney stone in the past 6. History of hypertension. Continue home medications 7. History of hyperlipidemia. Continue home medications. 8. History of coronary artery disease status post myocardial infarction. Continue home medication. 9. DVT prophylaxis. Lovenox 30 mg subcutaneous daily 10. DVT prophylaxis. Protonix 40 mg p.o. daily. We are is going to manage the patient daily and make recommendations on a daily basis. Everton Baugh MD EA/ /8:35 PM /8:59 PM
[2016-09-13] VITALS (27 sets, daily range): BP systolic 121–150; BP diastolic 62–83; PULSE 74–93; RESP 20–38; TEMP 96.6–98.3; O2SAT 90–99
[2016-09-13] MEDS: INSULIN ASPART SUPPLEMENTAL SCALE SQ SCH ×4 (02:00→21:01)
[2016-09-13] MEDS: AZTREONAM INJ 1,000 MG in SODIUM CHLORIDE 0.9% INJ 100 ML IV SCH (02:51)
[2016-09-13] MEDS: CHLORHEXIDINE GLUCONATE 2 % 1 PACK (2 CLOTHS) TOP SCH (02:51)
--- NOTE | 2016-09-13 05:10 | HHI.PR ---
Subjective History of Present Illness Patient feel better still SOB Have weakness ID Consulted for UTI/ Urosepsis. ok to transfer to med/tele. Review of Systems Constitutional Constitutional: Fatigue, Weakness Eyes Eyes Remarks Left artificial eye. Pulmonary Respiratory: Shortness of Breath, Wheezing Vitals/Results Intake & Output 09/12/16 09/12/16 09/13/16 15:00 23:00 07:00 Intake Total 362 ml 580 ml Output Total 1750 ml 1850 ml Balance -1388 ml -1270 ml Intake Oral 240 ml 580 ml IV Total 122 ml Output Urine Total 1750 ml 1850 ml # Bowel Movements 1 0 Vital Signs Vital Signs Date Time Temp Pulse Resp B/P Pulse Ox O2 Delivery O2 Flow Rate FiO2 09/13/16 04:01 98.1 78 21 135/69 96 09/13/16 04:00 78 09/13/16 03:12 88 28 144/70 09/13/16 02:01 82 28 130/66 90 09/13/16 02:00 80 09/13/16 01:01 84 26 132/62 09/13/16 00:01 98.0 86 26 126/68 99 09/13/16 00:00 90 09/12/16 23:01 76 22 138/70 100 09/12/16 22:01 82 27 124/62 99 09/12/16 22:00 78 09/12/16 21:01 84 19 123/73 100 09/12/16 20:35 100 Nasal Cannula 2.00 09/12/16 20:01 97.9 82 25 137/70 100 09/12/16 20:00 84 09/12/16 19:01 80 27 151/80 100 09/12/16 18:00 86 09/12/16 18:00 84 22 141/76 99 09/12/16 17:00 80 27 141/70 100 09/12/16 16:00 97.6 76 30 137/79 100 09/12/16 16:00 78 09/12/16 15:00 78 29 148/91 97 09/12/16 14:00 80 09/12/16 14:00 82 29 134/81 100 09/12/16 13:00 78 26 140/66 100 09/12/16 12:00 82 09/12/16 12:00 98.7 82 32 141/66 99 09/12/16 11:00 78 21 130/63 100 09/12/16 10:00 80 09/12/16 10:00 80 30 140/78 100 09/12/16 09:00 82 09/12/16 09:00 82 29 142/71 100 09/12/16 08:00 97.9 82 26 125/71 100 09/12/16 08:00 88 09/12/16 07:45 100 Nasal Cannula 2.00 09/12/16 07:00 97.8 84 25 128/68 99 09/12/16 06:01 84 30 128/68 99 09/12/16 06:00 86 CBC/BMP: 09/12/16 0430 09/12/16 0430 Physical Exam General General Appearance: No Acute Distress, Comfortable Eyes Eye Exam: Sclera White Eye Remarks left arificial eye Throat Throat Exam: Oral Mucosa [place] & Moist, Oral Pharynx Normal Neck Neck Exam: Neck Supple, Trachea Midline Pulmonary Resp Exam: Crackles, Rhonchi Resp Remarks Bilateral wheezing. Cardiology CV Exam: Regular, Normal Sinus Rhythm Gastrointestinal/Abdomen GI Exam: Soft, Non-Tender, Bowel Sounds Present Musculoskeletal MS Exam: Normal Tone Integumentary Skin Exam: Warm, Dry Neurologic Neuro Exam: Alert, Awake, Oriented, Speech Clear VTE Prophylaxis VTE Prophylaxis Meds: Lovenox PUD Prophylasis PUD Prophylaxis: Protonix Assessment/Plan Assessment/Plan ASSESSMENT/PLAN This is an 80-year-old female who came to the ER diagnosed with urinary tract infection/sepsis from urinary source. The patient on Levaquin IV and aztreonam. consulted infectious disease doctor for further recommendation. 2. History of congestive heart failure. The patient is on Lasix. 3. History of hypothyroidism. Continue Levoxyl 50 mcg p.o. daily. 4. History of COPD. Continue home medication. 5. History of kidney stone in the past 6. History of hypertension. Continue home medications 7. History of hyperlipidemia. Continue home medications. 8. History of coronary artery disease status post myocardial infarction. Continue home medication. 9. DVT prophylaxis. Lovenox 30 mg subcutaneous daily 10. DVT prophylaxis. Protonix 40 mg p.o. daily. Check CBC with diff CMP in AM. We are is going to manage the patient daily and make recommendations on a daily basis. Discussed Condition with: Patient Everton Ingram MD Sep 13, 2016 05:10
[2016-09-13] MEDS: LEVOTHYROXINE SODIUM 50 MCG TAB PO SCH (05:28)
[2016-09-13 05:50] LABS: AUTOMATED NEUTROPHIL # 6.9 TH/MM3 (1.8-7.7); BASOPHIL % 0.2 % (0.0-2.0); EOSINOPHIL # 0.2 TH/MM3 (0-0.4); HEMATOCRIT 28.4 % (35.0-46.0); LYMPH % 7.7 % (9.0-44.0); LYMPHOCYTE # 0.6 TH/MM3 (1.0-4.8); MEAN CELL VOLUME 74.2 FL (80.0-100.0); MEAN CORPUSCULAR HEMOGLOBIN 24.2 PG (27.0-34.0); MEAN CORPUSCULAR HGB CONC 32.7 % (32.0-36.0); MONO % 7.1 % (0.0-8.0); PLATELET COUNT 164 TH/MM3 (150-450); RED BLOOD COUNT 3.83 MIL/MM3 (4.00-5.30); RED CELL DISTRIBUTION WIDTH 18.1 % (11.6-17.2); WHITE BLOOD COUNT 8.3 TH/MM3 (4.0-11.0)
[2016-09-13 06:16] LABS: CHLORIDE 109 MEQ/L (98-107); POTASSIUM 3.3 MEQ/L (3.5-5.1); SODIUM (NA) 141 MEQ/L (136-145)
[2016-09-13 06:20] LABS: ANION GAP 12 MEQ/L (5-15); BICARBONATE 20.3 MEQ/L (21.0-32.0); BLOOD UREA NITROGEN 25 MG/DL (7-18)
[2016-09-13 06:23] LABS: ALT (GPT) 11 U/L (10-53); AST (GOT) 5 U/L (15-37); GLOMERULAR FILTRATION RATE 39 ML/MIN (>89)
[2016-09-13 06:24] LABS: TOTAL BILIRUBIN ADULT 0.4 MG/DL (0.2-1.0)
[2016-09-13 06:25] LABS: ALKALINE PHOSPHATASE 65 U/L (45-117)
[2016-09-13 06:38] LABS: HEMO FLAGS AUTO DIFF
[2016-09-13 07:15] LABS: SCAN/DIFF AUTO DIFF CONFIRMED
--- NOTE | 2016-09-13 07:55 | PD.CONS ---
History of Present Illness Service Infectious disease Consult Requested By Dr Ingram Reason for Consult UTI/ Sepsis Primary Care Physician Gurdeep Mims DO Diagnoses: (1) UTI (urinary tract infection) (2) Septicemia due to Klebsiella pneumoniae History of Present Illness Patient known to ID service with h/o fistula, repair- frequent UTI s and bacteremia and was admitted with generalized weakness and fever and also hypotension and is currently in the ICU. Feels better now. Review of Systems Constitutional: COMPLAINS OF: Fever, Change in appetite Endocrine: DENIES: Polydipsia Eyes: DENIES: Diplopia, Vision loss Ears, nose, mouth, throat: DENIES: Nasal discharge, Oral lesions Respiratory: DENIES: Cough, Wheezing Gastrointestinal: DENIES: Abdominal pain Musculoskeletal: DENIES: Muscle aches Neurologic: DENIES: Headache Psychiatric: COMPLAINS OF: Confusion, DENIES: Anxiety Past Family Social History Allergies: Coded Allergies: Contrast Media (Verified Allergy, Intermediate, Rash, 07/25/16) Rocephin (Verified Adverse Reaction, Severe, Diarrhea, 07/25/16) Past Medical History Diabetes Hypertension Dyslipidemia Myocardial infarction Hypothyroidism Kidney stones Previous bladder prolapse with fistula and status post cystocele repair and fistula repair May 2016 Cholecystectomy eyes surgery and lithotripsy. Social History No smoking Retired Physical Exam Vital Signs Vital Signs Date Time Temp Pulse Resp B/P Pulse Ox O2 Delivery O2 Flow Rate FiO2 09/13/16 07:01 78 24 134/65 97 09/13/16 06:01 76 20 121/68 97 09/13/16 06:00 74 09/13/16 05:01 76 24 135/76 97 09/13/16 04:01 98.1 78 21 135/69 96 09/13/16 04:00 78 09/13/16 03:12 88 28 144/70 09/13/16 02:01 82 28 130/66 90 09/13/16 02:00 80 09/13/16 01:01 84 26 132/62 09/13/16 00:01 98.0 86 26 126/68 99 09/13/16 00:00 90 09/12/16 23:01 76 22 138/70 100 09/12/16 22:01 82 27 124/62 99 09/12/16 22:00 78 09/12/16 21:01 84 19 123/73 100 09/12/16 20:35 100 Nasal Cannula 2.00 09/12/16 20:01 97.9 82 25 137/70 100 09/12/16 20:00 84 09/12/16 19:01 80 27 151/80 100 09/12/16 18:00 86 09/12/16 18:00 84 22 141/76 99 09/12/16 17:00 80 27 141/70 100 09/12/16 16:00 97.6 76 30 137/79 100 09/12/16 16:00 78 09/12/16 15:00 78 29 148/91 97 09/12/16 14:00 80 09/12/16 14:00 82 29 134/81 100 09/12/16 13:00 78 26 140/66 100 09/12/16 12:00 82 09/12/16 12:00 98.7 82 32 141/66 99 09/12/16 11:00 78 21 130/63 100 09/12/16 10:00 80 09/12/16 10:00 80 30 140/78 100 09/12/16 09:00 82 09/12/16 09:00 82 29 142/71 100 09/12/16 08:00 97.9 82 26 125/71 100 09/12/16 08:00 88 Physical Exam GENERAL: This is a chronically ill patient, in no apparent distress. SKIN: No rashes, ecchymoses or lesions. Cool and dry. HEAD: Atraumatic. Normocephalic. No temporal or scalp tenderness. EYES: Pupils equal round and reactive. Extraocular motions intact. No scleral icterus. No injection or drainage. ENT: Nose without bleeding, purulent drainage or septal hematoma. Throat without erythema, tonsillar hypertrophy or exudate. Uvula midline. Airway patent. NECK: Trachea midline. No JVD or lymphadenopathy. Supple, nontender, no meningeal signs. CARDIOVASCULAR: Regular rate and rhythm without murmurs, gallops, or rubs. RESPIRATORY: Clear to auscultation. Breath sounds equal bilaterally. No wheezes , rales, or rhonchi. GASTROINTESTINAL: Abdomen soft, Tenderness on lower abdomen, nondistended. No hepato-splenomegaly, or palpable masses. No guarding. MUSCULOSKELETAL: Extremities without clubbing, cyanosis, or edema. No joint tenderness, effusion, or edema noted. No calf tenderness. Negative Homans sign bilaterally. NEUROLOGICAL: Awake and alert. Cranial nerves II through XII intact. Motor and sensory grossly within normal limits. Five out of 5 muscle strength in all muscle groups. Normal speech. Laboratory Laboratory Tests Test 09/13/16 05:15 White Blood Count 8.3 Red Blood Count 3.83 Hemoglobin 9.3 Hematocrit 28.4 Mean Corpuscular Volume 74.2 Mean Corpuscular Hemoglobin 24.2 Mean Corpuscular Hemoglobin 32.7 Concent Red Cell Distribution Width 18.1 Platelet Count 164 Mean Platelet Volume 8.5 Neutrophils (%) (Auto) 83.0 Lymphocytes (%) (Auto) 7.7 Monocytes (%) (Auto) 7.1 Eosinophils (%) (Auto) 2.0 Basophils (%) (Auto) 0.2 Neutrophils # (Auto) 6.9 Lymphocytes # (Auto) 0.6 Monocytes # (Auto) 0.6 Eosinophils # (Auto) 0.2 Basophils # (Auto) 0.0 CBC Comment AUTO DIFF Differential Comment AUTO DIFF CONFIRMED Sodium Level 141 Potassium Level 3.3 Chloride Level 109 Carbon Dioxide Level 20.3 Anion Gap 12 Blood Urea Nitrogen 25 Creatinine 1.30 Estimat Glomerular Filtration 39 Rate Random Glucose 176 Calcium Level 7.9 Total Bilirubin 0.4 Aspartate Amino Transf 5 (AST/SGOT) Alanine Aminotransferase 11 (ALT/SGPT) Alkaline Phosphatase 65 Total Protein 6.0 Albumin 2.1 Date/Time Procedure Status Source Growth 09/10/16 00:23 Aerobic Blood Culture - Preliminary Resulted Blood Peripheral Gram Negative David 09/10/16 00:23 Anaerobic Blood Culture - Preliminary Resulted Klebsiella Pneumoniae 09/09/16 22:39 Urine Culture - Final Complete Urine Clean Catch Klebsiella Pneumoniae Result Diagram: 09/13/16 0515 09/13/1615 Assessment and Plan Problem List: (1) UTI (urinary tract infection) Status: Acute (2) Septicemia due to Klebsiella pneumoniae Status: Acute Plan: Follow Blood cultures Re check blood culture to make sure she is clearing bacteremia Re check UAC Stop Aztreonam Stop Levofloxacin Cipro 400 mg IV q 12hrs Problem Qualifiers (1) UTI (urinary tract infection): Qualified Code: N30.00 - Acute cystitis without hematuria Kathie Adkins MD Sep 13, 2016 07:55
[2016-09-13] MEDS: PANTOPRAZOLE SODIUM 40 MG VIAL IV SCH (08:14)
[2016-09-13] MEDS: DOCUSATE SODIUM 100 MG CAP PO SCH ×2 (08:15→20:57)
[2016-09-13] MEDS: ENOXAPARIN SODIUM 30 MG/0.3 ML SYRINGE SQ SCH (08:15)
[2016-09-13] MEDS: FUROSEMIDE 20 MG/2 ML VIAL IV PUSH SCH (08:15)
[2016-09-13] MEDS: CIPROFLOXACIN 400 MG PREMIX 200 ML IV SCH ×2 (09:54→20:58)
[2016-09-13] MEDS: SODIUM CHLORIDE 0.9% FLUSH 5 ML FLUSH IV FLUSH SCH ×2 (09:54→20:58)
[2016-09-13] MEDS: PRAVASTATIN SOD 10 MG TAB PO SCH (20:57)
[2016-09-13] MEDS: diphenhydrAMINE HCL 25 MG CAP PO PRN (23:44)
[2016-09-14] VITALS (8 sets, daily range): BP systolic 118–138; BP diastolic 69–87; PULSE 80–89; RESP 16–20; TEMP 96–98.6; O2SAT 95–100
[2016-09-14] MEDS: INSULIN ASPART SUPPLEMENTAL SCALE SQ SCH ×4 (02:00→21:58)
[2016-09-14] MEDS: CHLORHEXIDINE GLUCONATE 2 % 1 PACK (2 CLOTHS) TOP SCH ×2 (04:00→22:01)
[2016-09-14] MEDS: LEVOTHYROXINE SODIUM 50 MCG TAB PO SCH (06:12)
[2016-09-14 06:36] LABS: BASOPHIL % 0.3 % (0.0-2.0); EOSINOPHIL # 0.2 TH/MM3 (0-0.4); EOSINOPHIL % 2.1 % (0.0-4.0); HEMATOCRIT 31.4 % (35.0-46.0); MEAN CORPUSCULAR HEMOGLOBIN 24.4 PG (27.0-34.0); MONO % 10.2 % (0.0-8.0); NEUT % 75.4 % (16.0-70.0); PLATELET COUNT 190 TH/MM3 (150-450); RED BLOOD COUNT 4.24 MIL/MM3 (4.00-5.30); RED CELL DISTRIBUTION WIDTH 17.8 % (11.6-17.2)
[2016-09-14 06:37] LABS: HEMO FLAGS AUTO DIFF
[2016-09-14 06:43] LABS: CHLORIDE 104 MEQ/L (98-107); POTASSIUM 3.2 MEQ/L (3.5-5.1); SODIUM (NA) 139 MEQ/L (136-145)
[2016-09-14 06:47] LABS: ANION GAP 11 MEQ/L (5-15); BICARBONATE 24.1 MEQ/L (21.0-32.0); BLOOD UREA NITROGEN 28 MG/DL (7-18)
[2016-09-14 06:49] LABS: GLUCOSE,URINE NEG (NEG); KETONE, URINE NEG (NEG); NITRITE,URINE NEG (NEG); PH, URINE 6.5 (5.0-8.5)
[2016-09-14 06:50] LABS: ALT (GPT) 10 U/L (10-53); AST (GOT) 7 U/L (15-37); GLOMERULAR FILTRATION RATE 36 ML/MIN (>89)
[2016-09-14 06:51] LABS: BLOOD, URINE MOD (NEG)
[2016-09-14 06:52] LABS: TOTAL BILIRUBIN ADULT 0.4 MG/DL (0.2-1.0)
[2016-09-14 06:53] LABS: ALKALINE PHOSPHATASE 65 U/L (45-117)
[2016-09-14 06:55] LABS: METHOD OF COLLECTION CLEAN CATCH; URINE COLOR STRAW (YELLW/STRAW)
[2016-09-14 06:56] LABS: BACTERIA, URINE FEW /hpf; COMMENT (UR) CULTURE INDICATED; COMMENT2 (UR) MUCOUS PRESENT; CULTURE IF INDICATED CULTURE INDICATED; SQUAMOUS EPITHELIAL CELL URINE 0-5 /hpf (0-5)
[2016-09-14 07:03] LABS: SCAN/DIFF AUTO DIFF CONFIRMED
--- NOTE | 2016-09-14 08:18 | HHI.PR ---
Subjective History of Present Illness Patient feel better SOB better Have weakness ID input noted for UTI/ Urosepsis. Low Potassium will replace. d/w ARIC Ospina at bed side. Review of Systems Constitutional Constitutional: Fatigue, Weakness Eyes Eyes Remarks right artificial eye. Pulmonary Respiratory: Shortness of Breath, Wheezing Vitals/Results Intake & Output 09/13/16 09/13/16 09/14/16 15:00 23:00 07:00 Intake Total 670 ml 720 ml 60 ml Output Total 2475 ml 500 ml 475 ml Balance -1805 ml 220 ml -415 ml Intake Oral 450 ml 720 ml 60 ml IV Total 220 ml Output Urine Total 2475 ml 500 ml 475 ml # Bowel Movements 0 1 Vital Signs Vital Signs Date Time Temp Pulse Resp B/P Pulse Ox O2 Delivery O2 Flow Rate FiO2 09/14/16 04:00 98.3 82 20 121/74 97 09/14/16 00:00 98.6 82 20 131/87 97 09/13/16 20:00 93 09/13/16 20:00 96.6 88 20 125/78 99 09/13/16 19:59 98 Nasal Cannula 2.00 09/13/16 16:00 96.8 77 20 131/76 98 09/13/16 14:53 76 22 96 09/13/16 14:47 74 09/13/16 13:33 97.9 80 24 133/66 96 09/13/16 12:30 77 09/13/16 11:21 140/68 99 09/13/16 11:12 90 32 132/83 94 09/13/16 10:20 84 09/13/16 09:30 88 25 09/13/16 09:00 76 24 09/13/16 08:30 80 38 150/75 CBC/BMP: 09/14/16 0630 09/14/16 0630 Lab Results Laboratory Tests Test 09/14/16 06:30 White Blood Count 8.0 TH/MM3 Red Blood Count 4.24 MIL/MM3 Hemoglobin 10.4 GM/DL Hematocrit 31.4 % Mean Corpuscular Volume 74.0 FL Mean Corpuscular Hemoglobin 24.4 PG Mean Corpuscular Hemoglobin 33.0 % Concent Red Cell Distribution Width 17.8 % Platelet Count 190 TH/MM3 Mean Platelet Volume 8.3 FL Neutrophils (%) (Auto) 75.4 % Lymphocytes (%) (Auto) 12.0 % Monocytes (%) (Auto) 10.2 % Eosinophils (%) (Auto) 2.1 % Basophils (%) (Auto) 0.3 % Neutrophils # (Auto) 6.0 TH/MM3 Lymphocytes # (Auto) 1.0 TH/MM3 Monocytes # (Auto) 0.8 TH/MM3 Eosinophils # (Auto) 0.2 TH/MM3 Basophils # (Auto) 0.0 TH/MM3 CBC Comment AUTO DIFF Differential Comment AUTO DIFF CONFIRMED Urine Collection Type CLEAN CATCH Urine Color STRAW Urine Turbidity SLIGHT Urine pH 6.5 Urine Specific [place] 1.009 Urine Protein 30 mg/dL Urine Glucose (UA) NEG mg/dL Urine Ketones NEG mg/dL Urine Occult Blood MOD Urine Nitrite NEG Urine Bilirubin NEG Urine Leukocyte Esterase LARGE Urine RBC 10-14 /hpf Urine WBC 50-99 /hpf Urine WBC Clumps MOD Urine Squamous Epithelial 0-5 /hpf Cells Urine Amorphous Sediment FEW Urine Bacteria FEW /hpf Microscopic Urinalysis Comment CULTURE INDICATED Urine Collection Time 0630 Sodium Level 139 MEQ/L Potassium Level 3.2 MEQ/L Chloride Level 104 MEQ/L Carbon Dioxide Level 24.1 MEQ/L Anion Gap 11 MEQ/L Blood Urea Nitrogen 28 MG/DL Creatinine 1.40 MG/DL Estimat Glomerular Filtration 36 ML/MIN Rate Random Glucose 178 MG/DL Calcium Level 8.3 MG/DL Total Bilirubin 0.4 MG/DL Aspartate Amino Transf 7 U/L (AST/SGOT) Alanine Aminotransferase 10 U/L (ALT/SGPT) Alkaline Phosphatase 65 U/L Total Protein 6.5 GM/DL Albumin 2.3 GM/DL Microbiology Microbiology 09/13/16 Aerobic Blood Culture, Received Pending 09/13/16 Anaerobic Blood Culture, Received Pending 09/14/16 Urine Culture, Received Pending Physical Exam General General Appearance: No Acute Distress, Comfortable Eyes Eye Exam: Sclera White Eye Remarks right arificial eye Throat Throat Exam: Oral Mucosa [place] & Moist, Oral Pharynx Normal Neck Neck Exam: Neck Supple, Trachea Midline Pulmonary Resp Exam: Crackles, Rhonchi Resp Remarks Bilateral wheezing. Cardiology CV Exam: Regular, Normal Sinus Rhythm Gastrointestinal/Abdomen GI Exam: Soft, Non-Tender, Bowel Sounds Present Musculoskeletal MS Exam: Normal Tone Integumentary Skin Exam: Warm, Dry Neurologic Neuro Exam: Alert, Awake, Oriented, Speech Clear VTE Prophylaxis VTE Prophylaxis Meds: Lovenox PUD Prophylasis PUD Prophylaxis: Protonix Assessment/Plan Assessment/Plan ASSESSMENT/PLAN This is an 80-year-old female who came to the ER diagnosed with urinary tract infection/sepsis from urinary source. The patient on Levaquin IV and aztreonam. consulted infectious disease doctor for further recommendation. 2. History of congestive heart failure. The patient is on Lasix. 3. History of hypothyroidism. Continue Levoxyl 50 mcg p.o. daily. 4. History of COPD. Continue home medication. 5. History of kidney stone in the past 6. History of hypertension. Continue home medications 7. History of hyperlipidemia. Continue home medications. 8. History of coronary artery disease status post myocardial infarction. Continue home medication. 9. DVT prophylaxis. Lovenox 30 mg subcutaneous daily 10. DVT prophylaxis. Protonix 40 mg p.o. daily. 11. Low Potassium will replace 12. Right Artificial Eye. Check CBC with diff CMP in AM. We are is going to manage the patient daily and make recommendations on a daily basis. Discussed Condition with: Patient Everton Ingram MD Sep 14, 2016 08:18
[2016-09-14] MEDS: CIPROFLOXACIN 400 MG PREMIX 200 ML IV SCH ×2 (08:30→22:01)
[2016-09-14] MEDS: PANTOPRAZOLE SODIUM 40 MG VIAL IV SCH (08:30)
[2016-09-14] MEDS: SODIUM CHLORIDE 0.9% FLUSH 5 ML FLUSH IV FLUSH SCH ×2 (08:34→22:01)
[2016-09-14] MEDS: ENOXAPARIN SODIUM 30 MG/0.3 ML SYRINGE SQ SCH (08:34)
[2016-09-14] MEDS: FUROSEMIDE 20 MG/2 ML VIAL IV PUSH SCH (08:34)
[2016-09-14] MEDS: DOCUSATE SODIUM 100 MG CAP PO SCH ×2 (08:34→21:58)
[2016-09-14] MEDS ORDERED: POTASSIUM CHLORIDE 20 MEQ CONTROLLED RELEASE TAB PO ONE (11:00)
[2016-09-14] MEDS: PRAVASTATIN SOD 10 MG TAB PO SCH (21:58)
[2016-09-14] MEDS: diphenhydrAMINE HCL 25 MG CAP PO PRN (21:58)
[2016-09-15] VITALS (9 sets, daily range): BP systolic 110–139; BP diastolic 70–77; PULSE 74–88; RESP 14–18; TEMP 96.6–98.1; O2SAT 95–99
[2016-09-15] MEDS: INSULIN ASPART SUPPLEMENTAL SCALE SQ SCH ×3 (03:56→14:11)
[2016-09-15] MEDS: LEVOTHYROXINE SODIUM 50 MCG TAB PO SCH (05:57)
[2016-09-15 06:19] LABS: AUTOMATED NEUTROPHIL # 8.1 TH/MM3 (1.8-7.7); BASOPHIL % 0.1 % (0.0-2.0); EOSINOPHIL # 0.2 TH/MM3 (0-0.4); EOSINOPHIL % 2.3 % (0.0-4.0); HEMATOCRIT 30.6 % (35.0-46.0); LYMPH % 14.2 % (9.0-44.0); LYMPHOCYTE # 1.5 TH/MM3 (1.0-4.8); MEAN CELL VOLUME 74.5 FL (80.0-100.0); MEAN CORPUSCULAR HEMOGLOBIN 24.9 PG (27.0-34.0); MEAN CORPUSCULAR HGB CONC 33.4 % (32.0-36.0); MONO % 8.6 % (0.0-8.0); NEUT % 74.8 % (16.0-70.0); PLATELET COUNT 205 TH/MM3 (150-450); RED BLOOD COUNT 4.11 MIL/MM3 (4.00-5.30); RED CELL DISTRIBUTION WIDTH 18.3 % (11.6-17.2); WHITE BLOOD COUNT 10.7 TH/MM3 (4.0-11.0)
[2016-09-15 06:21] LABS: HEMO FLAGS AUTO DIFF
[2016-09-15 06:44] LABS: SCAN/DIFF AUTO DIFF CONFIRMED
[2016-09-15 06:47] LABS: ALKALINE PHOSPHATASE 63 U/L (45-117); ALT (GPT) 12 U/L (10-53); ANION GAP 11 MEQ/L (5-15); AST (GOT) 6 U/L (15-37); BICARBONATE 23.1 MEQ/L (21.0-32.0); BLOOD UREA NITROGEN 39 MG/DL (7-18); CHLORIDE 104 MEQ/L (98-107); GLOMERULAR FILTRATION RATE 36 ML/MIN (>89); POTASSIUM 4.1 MEQ/L (3.5-5.1); SODIUM (NA) 138 MEQ/L (136-145); TOTAL BILIRUBIN ADULT 0.4 MG/DL (0.2-1.0)
[2016-09-15] MEDS: CIPROFLOXACIN 400 MG PREMIX 200 ML IV SCH ×2 (07:57→21:13)
[2016-09-15] MEDS: PANTOPRAZOLE SODIUM 40 MG VIAL IV SCH (07:58)
[2016-09-15] MEDS: ENOXAPARIN SODIUM 30 MG/0.3 ML SYRINGE SQ SCH (07:58)
[2016-09-15] MEDS: SODIUM CHLORIDE 0.9% FLUSH 5 ML FLUSH IV FLUSH SCH ×2 (07:58→21:11)
[2016-09-15] MEDS: DOCUSATE SODIUM 100 MG CAP PO SCH ×2 (07:58→21:10)
--- NOTE | 2016-09-15 08:03 | HHI.PR ---
Subjective History of Present Illness Patient feel better SOB better Have weakness ID input noted for UTI/ Urosepsis.urine and blood culture grows klebscialla pneumoniae. Low Potassium resolved.. d/w ARIC Ospina at bed side. Review of Systems Constitutional Constitutional: Fatigue, Weakness Eyes Eyes Remarks right artificial eye. Pulmonary Respiratory: Shortness of Breath, Wheezing Vitals/Results Intake & Output 09/14/16 09/14/16 09/15/16 15:00 23:00 07:00 Intake Total 240 ml 460 ml 160 ml Output Total 1 ml 900 ml Balance 239 ml 460 ml -740 ml Intake Oral 240 ml 240 ml 160 ml IV Total 220 ml Output Urine Total 900 ml Stool Total 1 ml # Voids 2 # Bowel Movements 0 1 Vital Signs Vital Signs Date Time Temp Pulse Resp B/P Pulse Ox O2 Delivery O2 Flow Rate FiO2 09/15/16 04:00 96.6 78 18 130/76 98 09/15/16 00:00 98.1 87 18 119/72 97 09/14/16 20:00 86 09/14/16 20:00 96.7 80 18 138/73 98 09/14/16 19:27 95 09/14/16 16:00 96.0 82 16 129/69 99 09/14/16 12:00 96.0 82 16 120/72 99 09/14/16 08:25 89 CBC/BMP: 09/15/16 0600 09/15/16 0600 Lab Results Laboratory Tests Test 09/15/16 06:00 White Blood Count 10.7 TH/MM3 Red Blood Count 4.11 MIL/MM3 Hemoglobin 10.2 GM/DL Hematocrit 30.6 % Mean Corpuscular Volume 74.5 FL Mean Corpuscular Hemoglobin 24.9 PG Mean Corpuscular Hemoglobin 33.4 % Concent Red Cell Distribution Width 18.3 % Platelet Count 205 TH/MM3 Mean Platelet Volume 8.0 FL Neutrophils (%) (Auto) 74.8 % Lymphocytes (%) (Auto) 14.2 % Monocytes (%) (Auto) 8.6 % Eosinophils (%) (Auto) 2.3 % Basophils (%) (Auto) 0.1 % Neutrophils # (Auto) 8.1 TH/MM3 Lymphocytes # (Auto) 1.5 TH/MM3 Monocytes # (Auto) 0.9 TH/MM3 Eosinophils # (Auto) 0.2 TH/MM3 Basophils # (Auto) 0.0 TH/MM3 CBC Comment AUTO DIFF Differential Comment AUTO DIFF CONFIRMED Sodium Level 138 MEQ/L Potassium Level 4.1 MEQ/L Chloride Level 104 MEQ/L Carbon Dioxide Level 23.1 MEQ/L Anion Gap 11 MEQ/L Blood Urea Nitrogen 39 MG/DL Creatinine 1.40 MG/DL Estimat Glomerular Filtration 36 ML/MIN Rate Random Glucose 220 MG/DL Calcium Level 8.3 MG/DL Total Bilirubin 0.4 MG/DL Aspartate Amino Transf 6 U/L (AST/SGOT) Alanine Aminotransferase 12 U/L (ALT/SGPT) Alkaline Phosphatase 63 U/L Total Protein 6.5 GM/DL Albumin 2.4 GM/DL Physical Exam General General Appearance: No Acute Distress, Comfortable Eyes Eye Exam: Sclera White Eye Remarks right arificial eye Throat Throat Exam: Oral Mucosa [place] & Moist, Oral Pharynx Normal Neck Neck Exam: Neck Supple, Trachea Midline Pulmonary Resp Exam: Crackles, Rhonchi Resp Remarks Bilateral wheezing. Cardiology CV Exam: Regular, Normal Sinus Rhythm Gastrointestinal/Abdomen GI Exam: Soft, Non-Tender, Bowel Sounds Present Musculoskeletal MS Exam: Normal Tone Integumentary Skin Exam: Warm, Dry Neurologic Neuro Exam: Alert, Awake, Oriented, Speech Clear VTE Prophylaxis VTE Prophylaxis Meds: Lovenox PUD Prophylasis PUD Prophylaxis: Protonix Assessment/Plan Assessment/Plan ASSESSMENT/PLAN This is an 80-year-old female who came to the ER diagnosed with urinary tract infection/sepsis from urinary source. urine and blood culture grows klebscialla pneumoniae The patient on Cipro IV infectious disease input noted for further recommendation. 2. History of congestive heart failure. The patient is on Lasix. 3. History of hypothyroidism. Continue Levoxyl 50 mcg p.o. daily. 4. History of COPD. Continue home medication. 5. History of kidney stone in the past 6. History of hypertension. Continue home medications 7. History of hyperlipidemia. Continue home medications. 8. History of coronary artery disease status post myocardial infarction. Continue home medication. 9. DVT prophylaxis. Lovenox 30 mg subcutaneous daily 10. DVT prophylaxis. Protonix 40 mg p.o. daily. 11. Low Potassium resolved. 12. Right Artificial Eye. Check CBC with diff CMP in AM. We are is going to manage the patient daily and make recommendations on a daily basis. Discussed Condition with: Patient Everton Ingram MD Sep 15, 2016 08:03
--- NOTE | 2016-09-15 12:28 | HHI.IDPN ---
Subjective Subjective Remarks Feels better Sitting up in chair No fever/chills Antibiotics IV Cipro Past Medical History Recurrent UTI DM CAD Allergies: Coded Allergies: Contrast Media (Verified Allergy, Intermediate, Rash, 07/25/16) Rocephin (Verified Adverse Reaction, Severe, Diarrhea, 07/25/16) Review of Systems Constitutional Constitutional Remarks No fever, chills Objective . Vital Signs Date Time Temp Pulse Resp B/P Pulse Ox O2 Delivery O2 Flow Rate FiO2 09/15/16 08:00 97.3 78 18 118/77 95 09/15/16 04:00 96.6 78 18 130/76 98 09/15/16 00:00 98.1 87 18 119/72 97 09/14/16 20:00 86 09/14/16 20:00 96.7 80 18 138/73 98 09/14/16 19:27 95 09/14/16 16:00 96.0 82 16 129/69 99 09/14/16 09/14/16 09/15/16 15:00 23:00 07:00 Intake Total 240 ml 460 ml 160 ml Output Total 1 ml 1200 ml 900 ml Balance 239 ml -740 ml -740 ml Intake Oral 240 ml 240 ml 160 ml IV Total 220 ml Output Urine Total 1200 ml 900 ml Stool Total 1 ml # Voids 2 # Bowel Movements 0 1 . Laboratory Tests Test 09/14/16 09/15/16 06:30 06:00 White Blood Count 8.0 TH/MM3 10.7 TH/MM3 Red Blood Count 4.24 MIL/MM3 4.11 MIL/MM3 Hemoglobin 10.4 GM/DL 10.2 GM/DL Hematocrit 31.4 % 30.6 % Mean Corpuscular Volume 74.0 FL 74.5 FL Mean Corpuscular Hemoglobin 24.4 PG 24.9 PG Mean Corpuscular Hemoglobin 33.0 % 33.4 % Concent Red Cell Distribution Width 17.8 % 18.3 % Platelet Count 190 TH/MM3 205 TH/MM3 Mean Platelet Volume 8.3 FL 8.0 FL Neutrophils (%) (Auto) 75.4 % 74.8 % Lymphocytes (%) (Auto) 12.0 % 14.2 % Monocytes (%) (Auto) 10.2 % 8.6 % Eosinophils (%) (Auto) 2.1 % 2.3 % Basophils (%) (Auto) 0.3 % 0.1 % Neutrophils # (Auto) 6.0 TH/MM3 8.1 TH/MM3 Lymphocytes # (Auto) 1.0 TH/MM3 1.5 TH/MM3 Monocytes # (Auto) 0.8 TH/MM3 0.9 TH/MM3 Eosinophils # (Auto) 0.2 TH/MM3 0.2 TH/MM3 Basophils # (Auto) 0.0 TH/MM3 0.0 TH/MM3 CBC Comment AUTO DIFF AUTO DIFF Differential Comment AUTO DIFF AUTO DIFF CONFIRMED CONFIRMED Laboratory Tests Test 09/14/16 09/15/16 06:30 06:00 Sodium Level 139 MEQ/L 138 MEQ/L Potassium Level 3.2 MEQ/L 4.1 MEQ/L Chloride Level 104 MEQ/L 104 MEQ/L Carbon Dioxide Level 24.1 MEQ/L 23.1 MEQ/L Anion Gap 11 MEQ/L 11 MEQ/L Blood Urea Nitrogen 28 MG/DL 39 MG/DL Creatinine 1.40 MG/DL 1.40 MG/DL Estimat Glomerular Filtration 36 ML/MIN 36 ML/MIN Rate Random Glucose 178 MG/DL 220 MG/DL Calcium Level 8.3 MG/DL 8.3 MG/DL Total Bilirubin 0.4 MG/DL 0.4 MG/DL Aspartate Amino Transf 7 U/L 6 U/L (AST/SGOT) Alanine Aminotransferase 10 U/L 12 U/L (ALT/SGPT) Alkaline Phosphatase 65 U/L 63 U/L Total Protein 6.5 GM/DL 6.5 GM/DL Albumin 2.3 GM/DL 2.4 GM/DL Microbiology Date/Time Procedure Status Source Growth 09/13/16 09:30 Aerobic Blood Culture - Preliminary Resulted Blood Peripheral NO GROWTH IN 2 DAYS 09/13/16 09:30 Anaerobic Blood Culture - Preliminary Resulted Blood Peripheral NO GROWTH IN 2 DAYS 09/14/16 06:30 Urine Culture - Preliminary Resulted Urine Clean Catch NO GROWTH IN 24 HOURS. Physical Exam General Alert , Oriented General Appearance: No Acute Distress, Comfortable Eyes Eye Exam: Sclera White Eye Remarks right artificial eye Throat Throat Exam: Oral Mucosa [place] & Moist, Oral Pharynx Normal Neck Neck Exam: Neck Supple, Trachea Midline Pulmonary Resp Exam: Crackles, Rhonchi Resp Remarks Bilateral wheezing. Cardiology CV Exam: Regular, Normal Sinus Rhythm Gastrointestinal/Abdomen GI Exam: Soft, Non-Tender, Bowel Sounds Present Musculoskeletal MS Exam: Normal Tone Integumentary Skin Exam: Warm, Dry Assessment & Plan Diagnosis: (1) UTI (urinary tract infection) (2) Septicemia due to Klebsiella pneumoniae Plan: Repeat Blood culture is negative Follow repeat Urine culture Change IV Cipro to PO if culture remains negative. Problem Qualifiers (1) UTI (urinary tract infection): Qualified Code: N30.00 - Acute cystitis without hematuria Kathie Adkins MD Sep 15, 2016 12:28
[2016-09-15] MEDS ORDERED: PLEASE DISCONTINUE PREVIOUS SUPPLEMENTAL SCALE INSULIN ORDERS XX ONE (20:00)
[2016-09-15] MEDS: HIGH DOSE INSULIN NOVOLOG SUPPLEMENTAL SCALE SQ SCH (21:10)
[2016-09-15] MEDS: diphenhydrAMINE HCL 25 MG CAP PO PRN (21:11)
[2016-09-15] MEDS: PRAVASTATIN SOD 10 MG TAB PO SCH (21:11)
[2016-09-16 00:09] VITALS: BP 136/89; PULSE 88; RESP 18; TEMP 97.5; O2SAT 97
[2016-09-16] MEDS: HIGH DOSE INSULIN NOVOLOG SUPPLEMENTAL SCALE SQ SCH ×2 (01:57→08:17)
[2016-09-16] MEDS: CHLORHEXIDINE GLUCONATE 2 % 1 PACK (2 CLOTHS) TOP SCH (04:00)
[2016-09-16 04:09] VITALS: BP 121/77; PULSE 77; RESP 16; TEMP 98; O2SAT 96
[2016-09-16 04:23] VITALS: BP 121/77; PULSE 77; RESP 16; TEMP 98; O2SAT 96
[2016-09-16 05:18] LABS: AUTOMATED NEUTROPHIL # 9.4 TH/MM3 (1.8-7.7); BASOPHIL % 0.1 % (0.0-2.0); EOSINOPHIL # 0.2 TH/MM3 (0-0.4); EOSINOPHIL % 2.1 % (0.0-4.0); HEMATOCRIT 29.5 % (35.0-46.0); LYMPH % 13.1 % (9.0-44.0); LYMPHOCYTE # 1.6 TH/MM3 (1.0-4.8); MEAN CELL VOLUME 73.8 FL (80.0-100.0); MEAN CORPUSCULAR HEMOGLOBIN 24.4 PG (27.0-34.0); MONO % 5.5 % (0.0-8.0); NEUT % 79.2 % (16.0-70.0); PLATELET COUNT 224 TH/MM3 (150-450); RED BLOOD COUNT 3.99 MIL/MM3 (4.00-5.30); RED CELL DISTRIBUTION WIDTH 18.2 % (11.6-17.2); WHITE BLOOD COUNT 11.9 TH/MM3 (4.0-11.0)
[2016-09-16 05:20] LABS: HEMO FLAGS AUTO DIFF
[2016-09-16 05:28] LABS: CHLORIDE 104 MEQ/L (98-107); POTASSIUM 3.9 MEQ/L (3.5-5.1); SODIUM (NA) 137 MEQ/L (136-145)
[2016-09-16 05:34] LABS: ANION GAP 13 MEQ/L (5-15); BICARBONATE 20.1 MEQ/L (21.0-32.0)
[2016-09-16 05:37] LABS: PLATELET ESTIMATE SMEAR NORMAL (NORMAL); PLATELET MORPHOLOGY NORMAL (NORMAL); SCAN/DIFF AUTO DIFF CONFIRMED
[2016-09-16 05:40] LABS: ALT (GPT) 10 U/L (10-53); AST (GOT) 7 U/L (15-37); BLOOD UREA NITROGEN 48 MG/DL (7-18); GLOMERULAR FILTRATION RATE 23 ML/MIN (>89); TOTAL BILIRUBIN ADULT 0.4 MG/DL (0.2-1.0)
[2016-09-16 05:58] LABS: ALKALINE PHOSPHATASE 59 U/L (45-117)
[2016-09-16] MEDS: LEVOTHYROXINE SODIUM 50 MCG TAB PO SCH (06:37)
[2016-09-16 08:00] VITALS: PULSE 79; O2SAT 97
--- NOTE | 2016-09-16 08:02 | HHI.PR ---
Subjective History of Present Illness Patient feel better SOB better Have weakness ID input noted for UTI/ Urosepsis.urine and blood culture grows klebscialla pneumoniae. Low Potassium resolved.. d/w ARIC Francis at bed side...d/w DR Chavira ok to DC Per ID. Review of Systems Constitutional Constitutional: Fatigue, Weakness Eyes Eyes Remarks right artificial eye. Pulmonary Respiratory: Shortness of Breath, Wheezing Vitals/Results Intake & Output 09/15/16 09/15/16 09/16/16 15:00 23:00 07:00 Intake Total 699 ml 0 ml Balance 699 ml 0 ml Intake Oral 480 ml IV Total 219 ml 0 ml # Voids 1 1 Vital Signs Vital Signs Date Time Temp Pulse Resp B/P Pulse Ox O2 Delivery O2 Flow Rate FiO2 09/16/16 04:23 98.0 77 16 121/77 96 09/16/16 04:09 98.0 77 16 121/77 96 09/16/16 00:09 97.5 88 18 136/89 97 09/15/16 20:37 97.5 82 14 139/77 99 09/15/16 20:30 99 21 09/15/16 20:00 88 09/15/16 16:00 97.5 75 18 110/70 95 09/15/16 12:00 98.0 74 18 122/71 95 09/15/16 08:05 74 CBC/BMP: 09/16/16 0505 09/16/16 0505 Lab Results Laboratory Tests Test 09/15/16 09/16/16 20:35 05:05 Random Glucose 442 MG/DL 196 MG/DL White Blood Count 11.9 TH/MM3 Red Blood Count 3.99 MIL/MM3 Hemoglobin 9.7 GM/DL Hematocrit 29.5 % Mean Corpuscular Volume 73.8 FL Mean Corpuscular Hemoglobin 24.4 PG Mean Corpuscular Hemoglobin 33.0 % Concent Red Cell Distribution Width 18.2 % Platelet Count 224 TH/MM3 Mean Platelet Volume 8.2 FL Neutrophils (%) (Auto) 79.2 % Lymphocytes (%) (Auto) 13.1 % Monocytes (%) (Auto) 5.5 % Eosinophils (%) (Auto) 2.1 % Basophils (%) (Auto) 0.1 % Neutrophils # (Auto) 9.4 TH/MM3 Lymphocytes # (Auto) 1.6 TH/MM3 Monocytes # (Auto) 0.7 TH/MM3 Eosinophils # (Auto) 0.2 TH/MM3 Basophils # (Auto) 0.0 TH/MM3 CBC Comment AUTO DIFF Differential Comment AUTO DIFF CONFIRMED Platelet Estimate NORMAL Platelet Morphology Comment NORMAL Sodium Level 137 MEQ/L Potassium Level 3.9 MEQ/L Chloride Level 104 MEQ/L Carbon Dioxide Level 20.1 MEQ/L Anion Gap 13 MEQ/L Blood Urea Nitrogen 48 MG/DL Creatinine 2.10 MG/DL Estimat Glomerular Filtration 23 ML/MIN Rate Calcium Level 8.2 MG/DL Total Bilirubin 0.4 MG/DL Aspartate Amino Transf 7 U/L (AST/SGOT) Alanine Aminotransferase 10 U/L (ALT/SGPT) Alkaline Phosphatase 59 U/L Total Protein 6.4 GM/DL Albumin 2.3 GM/DL Physical Exam General General Appearance: No Acute Distress, Comfortable Eyes Eye Exam: Sclera White Eye Remarks right arificial eye Throat Throat Exam: Oral Mucosa [place] & Moist, Oral Pharynx Normal Neck Neck Exam: Neck Supple, Trachea Midline Pulmonary Resp Exam: Crackles, Rhonchi Resp Remarks Bilateral wheezing. Cardiology CV Exam: Regular, Normal Sinus Rhythm Gastrointestinal/Abdomen GI Exam: Soft, Non-Tender, Bowel Sounds Present Musculoskeletal MS Exam: Normal Tone Integumentary Skin Exam: Warm, Dry Neurologic Neuro Exam: Alert, Awake, Oriented, Speech Clear VTE Prophylaxis VTE Prophylaxis Meds: Lovenox PUD Prophylasis PUD Prophylaxis: Protonix Assessment/Plan Assessment/Plan ASSESSMENT/PLAN This is an 80-year-old female who came to the ER diagnosed with urinary tract infection/sepsis from urinary source. urine and blood culture grows klebscialla pneumoniae The patient on Cipro IV infectious disease input noted for further recommendation. 2. History of congestive heart failure. The patient is on Lasix. 3. History of hypothyroidism. Continue Levoxyl 50 mcg p.o. daily. 4. History of COPD. Continue home medication. 5. History of kidney stone in the past 6. History of hypertension. Continue home medications 7. History of hyperlipidemia. Continue home medications. 8. History of coronary artery disease status post myocardial infarction. Continue home medication. 9. DVT prophylaxis. Lovenox 30 mg subcutaneous daily 10. DVT prophylaxis. Protonix 40 mg p.o. daily. 11. Low Potassium resolved. 12. Right Artificial Eye. d/w DR Fan ok to DC Per ID.. ok to dc home today patient wants to go home. f/u with PCP/ID 2-3 days. Discussed Condition with: Patient Everton Ingram MD Sep 16, 2016 08:02
[2016-09-16] MEDS: CIPROFLOXACIN 400 MG PREMIX 200 ML IV SCH (08:17)
[2016-09-16] MEDS: ENOXAPARIN SODIUM 30 MG/0.3 ML SYRINGE SQ SCH (08:18)
[2016-09-16] MEDS: PANTOPRAZOLE SODIUM 40 MG VIAL IV SCH (08:18)
[2016-09-16] MEDS: SODIUM CHLORIDE 0.9% FLUSH 5 ML FLUSH IV FLUSH SCH (08:18)
[2016-09-16] MEDS: DOCUSATE SODIUM 100 MG CAP PO SCH (08:18)
[2016-09-16 09:19] VITALS: BP 114/59; PULSE 80; RESP 15; TEMP 96.9; O2SAT 99
[2016-09-16] MEDS ORDERED: CIPR100T2 PO (09:47)
--- NOTE | 2016-09-26 13:13 | MD ---
cc: EVERTON BAUGH MD ADMISSION DATE: 09/10/2016 DISCHARGE DATE: 09/16/2016 DISCHARGE STATUS: Okay to discharge the patient home. CONDITION AT TIME OF DISCHARGE: Satisfactory activity as tolerated. Diet cardiac diet. ALLERGIES ROCEPHIN CONTRAST MEDIA DISCHARGE MEDICATIONS 1. Ciprofloxacin 250 mg twice a day for 10 days. 2. Enalapril 10 mg p.o. daily 3. lymphocytes 4 mg p.o. daily 4. Levothyroxine 50 mcg p.o. daily. 5. Metformin 1000 mg p.o. b.i.d. 6. Pravastatin 10 mg p.o. daily. DISCHARGE INSTRUCTIONS: The patient was advised to follow his PCP and infectious disease in three days. ADMISSION DIAGNOSIS Urinary tract infection / sepsis from urinary source. The patients, blood culture and urine culture grew Klebsiella pneumoniae. The patient was given IV antibiotic. OTHER PAST MEDICAL HISTORY: 1. Include history of congestive heart failure. 2. Hypothyroidism 3. COPD 4. kidney stone hypertension 5. hyperlipidemia 6. coronary artery disease. HOSPITAL COURSE This is 80-year female admitted with infection in the urine and sepsis from urinary source. The patient was given empiric antibiotic. Infectious disease Dr. Foster seen the patient during hospital stay. The patient discharged on Cipro 250 mg twice a day for 10 days. The patient to blood culture positive for Klebsiella pneumoniae the patient remained stable. No acute event happened. She was discharged in satisfactory condition. Further details in the medical record. Everton Baugh MD EA/terri /12:16 PM /1:06 PM
[2016-10-12] MEDS ORDERED: BACT400T PO (15:31)
== END 2016-09-16 11:20 | disposition home or self-care (01) | DRG 871 ==
LOC: PHED 22:02 → PHEDA 09-10 03:47 → PHICU 09-10 04:35 → PH3B 09-13 15:23
PROVIDERS: ADMIT Specialist; ATTEND Specialist
PROC: 05H533Z Insertion of Infusion Device into Right Subclavian Vein, Percutaneous Approach (ICD-10-PCS; principal; 2016-09-13)
DX: A41.59 Other Gram-negative sepsis (principal); R65.21 Severe sepsis with septic shock; N17.9 Acute kidney failure, unspecified; E87.2 Acidosis; N39.0 Urinary tract infection, site not specified; E03.9 Hypothyroidism, unspecified; E11.9 Type 2 diabetes mellitus without complications; E78.5 Hyperlipidemia, unspecified; E86.0 Dehydration; I25.10 Atherosclerotic heart disease of native coronary artery without angina pectoris; I25.2 Old myocardial infarction; Z87.440 Personal history of urinary (tract) infections; J44.9 Chronic obstructive pulmonary disease, unspecified; I10 Essential (primary) hypertension
CPT/HCPCS: 36430; 36556; 71010; 74176; 80048; 80053; 81001; 82947; 82948; 83605; 83735; 84155; 85007; 85025; 85027; 86850; 86900; 86901; 86920; 87040; 87077; 87086; 87186; 87205; 87641; 94640; 94664; 96361; 96365; 96367; C9113; J0744; J1650; J1815; J1940; J1956; J2250; J2405; J3475; J3480; J7030; J7040; J7050; P9016